=== PATIENT | female | born 1930 | race Caucasian/White ===

== ENCOUNTER 2017-06-02 18:06 | Emergency (ER) | payer MEDICARE, OTHER ==
[2017-06-02] MEDS ORDERED: traMADol 50 MG Tab PO ONE (18:07)
[2017-06-02] MEDS ORDERED: Morphine 4 MG/ML Syringe IM ONE (18:40)
[2017-06-02] MEDS ORDERED: fentaNYL 100 MCG/2 ML SDV IM ONE (18:42)
--- NOTE | 2017-06-02 18:46 | EDM.PDOC ---
ED HPI GENERAL MEDICAL PROBLEM - General Chief Complaint: Lower Extremity Injury/Pain Stated Complaint: "My right leg hurts" Time Seen by Provider: 06/02/17 18:30 Source of Information: Reports: Patient, Family History Limitations: Reports: No Limitations - History of Present Illness INITIAL COMMENTS - FREE TEXT/NARRATIVE: Sofia is an 86 yo female who presents to the ER with complaints of right leg pain, originating in the groin area. She states she traveled to [place] on Sunday for ving and was in a car for quite some time. She states it really didn't bother her at all on Sunday. Around noon on the pain started and has gotten worse since. She states she isn't able to lay flat d/t the discomfort. Admits she isn't able to walk because of the pain. Has noticed some swelling to the lower leg but admits she does get some fluid on her legs. It has been worse on the right then the left. She denies any prior history of right groin pain. She points to the crease of the groin where the pain originates from. States she is on Coumadin and is due for her lab work on Sunday. Has not had it checked in 3 weeks or so. States with recent travel she is concerned of a blood clot. She has otherwise been feeling well. She states her pain is severe and needs something for relief. Onset Date: 05/31/17 Onset Time: 12:00 Duration: Constant Location: Reports: Lower Extremity, Right Improves with: Reports: Immobilization Worsens with: Reports: Other (laying flat), Movement Associated Symptoms: Reports: No Other Symptoms Right Upper Leg Pain Score (Numeric/FACES): 10 - Related Data Allergies Allergy/AdvReac Type Severity Reaction Status Date / Time adhesive tape Allergy Rash Verified 06/02/17 18:25 latex Allergy Rash Verified 06/02/17 18:25 Home Meds: Home Meds Aspirin [Adult Low Dose Aspirin EC] 81 mg PO DAILY 06/02/17 [History] Atenolol 100 mg PO DAILY 06/02/17 [History] Cholecalciferol (Vitamin D3) [Vitamin D3] 2,000 unit PO DAILY 06/02/17 [History] Digoxin 0.25 mg PO ASDIRECTED 06/02/17 [History] Multivitamin [Daily Multiple Vitamin] 1 tab PO DAILY 06/02/17 [History] Potassium Gluconate [Potassium] 99 mg PO BID 06/02/17 [History] Torsemide 20 mg PO ASDIRECTED 06/02/17 [History] Warfarin [Coumadin] 5 mg PO DAILY 06/02/17 [History] Past Medical History HEENT History: Reports: None Cardiovascular History: Reports: Afib, Hypertension Respiratory History: Reports: None Gastrointestinal History: Reports: None Genitourinary History: Reports: Urinary Incontinence Musculoskeletal History: Reports: Osteoarthritis Neurological History: Reports: None Endocrine/Metabolic History: Reports: Obesity/BMI 30+ Hematologic History: Reports: Anticoagulation Therapy - Past Surgical History Head Surgeries/Procedures: Reports: None HEENT Surgical History: Reports: Cataract Surgery, Tonsillectomy Cardiovascular Surgical History: Reports: None Respiratory Surgical History: Reports: None GI Surgical History: Reports: Cholecystectomy Female Surgical History: Reports: Breast Biopsy, Hysterectomy Musculoskeletal Surgical History: Reports: Knee Replacement (left) Social & Family History - Tobacco Use Smoking Status *Q: Former Smoker (quit 35 yrs ago) Tobacco Use Within Last Twelve Months: No - Alcohol Use Alcohol Use History: No - Living Situation & Occupation Living situation: Reports: Alone Occupation: Retired Review of Systems - Review of Systems Review Of Systems: See Below Constitutional: Reports: No Symptoms Eyes: Reports: No Symptoms Ears: Reports: No Symptoms Nose: Reports: No Symptoms Mouth/Throat: Reports: No Symptoms Respiratory: Reports: No Symptoms Cardiovascular: Reports: Edema, Irregular Heart Rate (chronic a. fib) GI/Abdominal: Reports: No Symptoms Genitourinary: Reports: No Symptoms Musculoskeletal: Reports: Leg Pain, Joint Pain, Muscle Stiffness Skin: Reports: No Symptoms Neurological: Reports: No Symptoms Psychiatric: Reports: No Symptoms ED EXAM, GENERAL - Physical Exam Exam: See Below Exam Limited By: No Limitations General Appearance: Alert, Mild Distress Ears: Normal External Exam, Hearing Grossly Normal Nose: Normal Inspection, No Blood Throat/Mouth: Normal Lips, Normal Voice, No Airway Compromise Head: Atraumatic, Normocephalic Respiratory/Chest: No Respiratory Distress, Lungs Clear, Normal Breath Sounds, No Accessory Muscle Use Cardiovascular: Irregularly Irregular (normal rate) GI/Abdominal: Other (obese) Extremities: Pedal Edema (R > L), Leg Pain, Limited Range of Motion (right hip) , Other (No tenderness to lateral hip area ). No: Harper's Sign, Increased Warmth, Redness Neurological: Alert, Oriented, Normal Cognition Psychiatric: Normal Affect, Normal Mood Skin Exam: Warm, Dry, Intact, Normal Color, No Rash Course - Vital Signs Last Recorded V/S: Last Vital Signs Temp 98.2 F 06/02/17 19:02 Pulse 88 06/02/17 19:02 Resp 20 06/02/17 19:02 BP 159/87 H 06/02/17 19:02 Pulse Ox 96 06/02/17 19:02 - Orders/Labs/Meds Orders: Active Orders 24 hr Category Date Time Status Hip Min 2V or 3V w Pelvis Rt [CR] Stat Exams 06/02/17 18:34 Ordered VL Duplex Lwr Ext Veins Ltd Rt [US] Stat Exams 06/02/17 18:34 Ordered Labs: Laboratory Tests 06/02/17 06/02/17 Range/Units 18:58 18:58 WBC 13.4 H (5.0-10.0) 10^3/uL RBC 4.80 (4.00-5.50) 10^6/uL Hgb 14.3 (12.0-16.0) g/dL Hct 43.9 (37.0-47.0) % MCV 91.5 (82.0-94.0) fL MCH 29.8 (27.0-32.0) pg MCHC 32.6 L (33.0-38.0) g/dL RDW Coeff of Joao 13.4 (11.0-15.0) % Plt Count 278 (150-400) 10^3/uL Neut % (Auto) 80.9 (35-85) % Lymph % (Auto) 10.9 (10-55) % Waller % (Auto) 6.5 (0-16) % Eos % (Auto) 1.3 (0-5) % Baso % (Auto) 0.4 (0-3) % Neut # (Auto) 10.82 H (1.80-7.00) 10^3/uL Lymph # (Auto) 1.45 (1.00-4.80) 10^3/uL Waller # (Auto) 0.87 H (0.00-0.80) 10^3/uL Eos # (Auto) 0.17 (0.00-0.45) 10^3/uL Baso # (Auto) 0.05 10^3/uL PT 25.5 H (9.7-12.3) SEC INR 2.30 H (0.92-1.18) Meds: Medications Discontinued Medications Generic Name Dose Route Start Last Admin Trade Name Adamaris PRN Reason Stop Dose Admin Fentanyl 50 mcg 06/02/17 18:42 06/02/17 18:48 Sublimaze IM 06/02/17 18:43 50 mcg ONETIME ONE Administration Morphine Sulfate 4 mg 06/02/17 18:40 06/02/17 18:50 Morphine IM 06/02/17 18:41 Not Given ONETIME ONE Tramadol HCl 2 packet 06/02/17 19:33 Take Home: Tramadol 50 Mg, 4 Tab Pack PO 06/02/17 19:34 ONETIME ONE Departure - Departure Time of Disposition: 19:45 Disposition: Home, Self-Care 01 Clinical Impression: Osteoarthritis of right hip - Discharge Information Instructions: Hip Pain Forms: ED Department Discharge Additional Instructions: 1) Tramadol 50mg - 1 tablet every 6 hours as needed for pain 2) May use Tylenol 1000 mg every 6-8 hours as well for discomfort, recommend no more than 3000mg in a 24 hr period 3) May apply ice 4) Encourage ambulation at tolerated 5) Schedule appointment with Dr. Puckett for Sunday or Sunday to discuss fluoro guided hip injection. 6) Call or return if any concerns or questions... [phone] - Problem List & Annotations (1) Osteoarthritis of right hip SNOMED Code(s): 538233050308383 Code(s): M16.11 - UNILATERAL PRIMARY OSTEOARTHRITIS, RIGHT HIP Status: Acute Qualifiers: Osteoarthritis type: primary Qualified Code(s): M16.11 - Unilateral primary osteoarthritis, right hip - Problem List Review Problem List Initiated/Reviewed/Updated: Yes - My Orders Last 24 Hours: My Active Orders 06/02/17 18:34 Hip Min 2V or 3V w Pelvis Rt [CR] Stat VL Duplex Lwr Ext Veins Ltd Rt [US] Stat - Assessment/Plan Last 24 Hours: My Active Orders 06/02/17 18:34 Hip Min 2V or 3V w Pelvis Rt [CR] Stat VL Duplex Lwr Ext Veins Ltd Rt [US] Stat Plan: Ultrasound was negative for DVT. X-ray's confirmed moderate to severe osteoarthritis of the right hip. Recommend seeing Dr. Puckett on Sunday in clinic for referral to radiology for fluoro guided hip injection. Tramadol 50mg - 1 tablet every 6 hours as needed for pain.
[2017-06-02] MEDS ORDERED: Take Home: traMADol 50 MG, 4 Tab Pack PO ONE (19:33)
[2017-06-02] MEDS ORDERED: Acetaminophen 500 MG Tab PO ONE (19:47)
== END 2017-06-02 20:00 | disposition home or self-care (01) ==
LOC: CC.ED 18:06
DX: M16.11 Unilateral primary osteoarthritis, right hip (principal); I48.91 Unspecified atrial fibrillation; I10 Essential (primary) hypertension; E66.9 Obesity, unspecified; Z91.048 Other nonmedicinal substance allergy status; Z91.040 Latex allergy status; Z79.82 Long term (current) use of aspirin; Z79.899 Other long term (current) drug therapy; Z79.01 Long term (current) use of anticoagulants; Z87.891 Personal history of nicotine dependence
CPT/HCPCS: 36415; 73502; 85025; 85610; 93971; 96372; 99284; A9270; J3010

== ENCOUNTER 2018-07-14 07:45 | Inpatient (IN) | payer MEDICARE, OTHER ==
[2018-07-14] MEDS ORDERED: Albuterol/Ipratropium 3.0-0.5 MG/3 ML Neb Soln NEB ONE ×2 (07:57→08:39)
[2018-07-14 08:22] LABS: CHLORIDE,CL 104 mEq/L (98-106); SODIUM,NA 140 mEq/L (136-145)
--- NOTE | 2018-07-14 08:25 | EDM.PDOC ---
ED HPI GENERAL MEDICAL PROBLEM - General Chief Complaint: Respiratory Problem Stated Complaint: shortness of breath Time Seen by Provider: 07/14/18 08:17 Source of Information: Reports: Patient History Limitations: Reports: No Limitations - History of Present Illness INITIAL COMMENTS - FREE TEXT/NARRATIVE: This patient is an 87 year old female that presents to the ER. The patient reports since yesterday having congestion, drainage, productive cough, shortness of breath. The patent reports she has a histoyr of asthma and bronchitis. The patient reports man of the people she east lunch with have not been coming lately due to being ill. RN called and reported to me the patient was very tight in chest with wheezing and oxygen was 86% on RA. Patient at that time was given a breathing duoneb and oxygen NC. When I listened to the patient she had tight audible wheezes, but moving air. This is much improved the RN reports. At this time, have ordered, labs, ekg, cxr. Onset Date: 07/13/18 Duration: Day(s): (1) Improves with: Reports: None Worsens with: Reports: None Associated Symptoms: Reports: Cough, cough w sputum, Shortness of Breath. Denies: Confusion, Chest Pain, Diaphoresis, Fever/Chills, Headaches, Loss of Appetite, Malaise, Nausea/Vomiting, Rash, Seizure, Syncope, Weakness - Related Data Allergies Allergy/AdvReac Type Severity Reaction Status Date / Time adhesive tape Allergy Rash Verified 07/14/18 08:03 latex Allergy Rash Verified 07/14/18 08:03 Home Meds: Home Meds Atenolol 100 mg PO DAILY 06/02/17 [History] Cholecalciferol (Vitamin D3) [Vitamin D3] 2,000 unit PO DAILY 06/02/17 [History] Potassium Gluconate [Potassium] 198 mg PO QAM 06/02/17 [History] Torsemide 20 mg PO DAILY 06/02/17 [History] Warfarin [Coumadin] 5 mg PO SUMOTUWEFRSA 06/02/17 [History] Albuterol [Ventolin HFA] 2 puff INH QID PRN 07/14/18 [History] Digoxin 0.1875 mg PO SUMOTUWETHSA 07/14/18 [History] Digoxin 250 mg PO FR 07/14/18 [History] Fluticasone/Vilanterol [Breo Ellipta 100-25 MCG Inhalation Kit] 1 puff INH DAILY 07/14/18 [History] Potassium 297 mg PO QPM 07/14/18 [History] Tumeric 1 tab PO DAILY 07/14/18 [History] Warfarin [Coumadin] 7.5 mg PO TH 07/14/18 [History] Past Medical History HEENT History: Reports: None Cardiovascular History: Reports: Afib, Hypertension Respiratory History: Reports: None Gastrointestinal History: Reports: None Genitourinary History: Reports: Urinary Incontinence 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 Musculoskeletal History: Reports: Osteoarthritis Neurological History: Reports: None Endocrine/Metabolic History: Reports: Obesity/BMI 30+ Hematologic History: Reports: Anticoagulation Therapy - Past Surgical History Head Surgeries/Procedures: Reports: None HEENT Surgical History: Reports: Cataract Surgery, Tonsillectomy Cardiovascular Surgical History: Reports: None Respiratory Surgical History: Reports: None GI Surgical History: Reports: Cholecystectomy Female Surgical History: Reports: Breast Biopsy, Hysterectomy Musculoskeletal Surgical History: Reports: Knee Replacement Social & Family History - Tobacco Use Smoking Status *Q: Former Smoker Used Tobacco, but Quit: Yes Month/Year Tobacco Last Used: 40 YEARS AGO - Caffeine Use Caffeine Use: Reports: Coffee - Recreational Drug Use Recreational Drug Use: No - Living Situation & Occupation Living situation: Reports: Alone Occupation: Retired ED ROS GENERAL - Review of Systems Review Of Systems: See Below Constitutional: Reports: No Symptoms HEENT: Reports: Rhinitis, Sinus Problem Respiratory: Reports: Shortness of Breath, Wheezing, Cough, Sputum. Denies: Hemoptysis Cardiovascular: Reports: No Symptoms Endocrine: Reports: No Symptoms GI/Abdominal: Reports: No Symptoms : Reports: No Symptoms Musculoskeletal: Reports: No Symptoms Skin: Reports: No Symptoms Neurological: Reports: No Symptoms Psychiatric: Reports: No Symptoms Hematologic/Lymphatic: Reports: No Symptoms Immunologic: Reports: No Symptoms ED EXAM, GENERAL - Physical Exam Exam: See Below Exam Limited By: No Limitations General Appearance: Alert, WD/WN, No Apparent Distress Eye Exam: Bilateral Eye: Normal Inspection, PERRL Ears: Normal External Exam, Normal Canal, Hearing Grossly Normal, Normal TMs Ear Exam: Bilateral Ear: Auricle Normal, Canal Normal, TM normal Nose: Normal Inspection, Normal Mucosa, No Blood Throat/Mouth: Normal Inspection, Normal Lips, Normal Teeth, Normal Gums, Normal Oropharynx, Normal Voice, No Airway Compromise Head: Atraumatic, Normocephalic Neck: Normal Inspection, Supple, Non-Tender, Full Range of Motion Respiratory/Chest: No Respiratory Distress, No Accessory Muscle Use, Chest Non- Tender, Wheezing Cardiovascular: Normal Peripheral Pulses, Regular Rate, Rhythm, No Edema, No Gallop, No JVD, No Rub, Systolic Murmur Peripheral Pulses: 2+: Radial (L), Radial (R), Posterior Tibial (L), Posterior Tibial (R) Back Exam: Normal Inspection, Full Range of Motion Extremities: Normal Inspection, Normal Range of Motion, Non-Tender, No Pedal Edema, Normal Capillary Refill, Pedal Edema (RLE +1. ) Neurological: Alert, Oriented, Normal Cognition, Normal Gait, No Motor/Sensory Deficits Psychiatric: Normal Affect, Normal Mood Skin Exam: Warm, Dry, Intact, Normal Color, No Rash Lymphatic: No Adenopathy EKG INTERPRETATION EKG Date: 07/14/18 Time: 08:26 Rhythm: A-Fib Rate (Beats/Min): 89 NV/PQ Interval: Digitalis effect. Patient on Digoxin. A-fib with history. Course - Vital Signs Last Recorded V/S: Last Vital Signs Temp 98.7 F 07/14/18 12:00 Pulse 88 07/14/18 14:59 Resp 18 07/14/18 12:00 BP 184/74 H 07/14/18 12:00 Pulse Ox 95 07/14/18 12:00 - Orders/Labs/Meds Orders: Active Orders 24 hr Category Date Time Status RT Aerosol Therapy [RC] 0800,1400,2000 Care 07/14/18 07:57 Active Chest 2V [CR] Stat Exams 07/14/18 07:55 Taken Medication Orders Acetaminophen (Tylenol) 650 mg PO Q4H PRN PRN Reason: Pain (Mild 1-3)/fever Albuterol (Ventolin Hfa) 0 gm INH QID PRN PRN Reason: SHORTNESS OF BREATH Albuterol/Ipratropium (Duoneb 3.0-0.5 Mg/3 Ml) 3 ml NEB Q4H PRN PRN Reason: Shortness Of Breath/wheezing Albuterol/Ipratropium (Duoneb 3.0-0.5 Mg/3 Ml) 3 ml NEB TIDRT LORRI Last Admin: 07/14/18 14:58 Dose: 3 ml Atenolol (Tenormin) 100 mg PO DAILY [facility] Cholecalciferol (Vitamin D3) 2,000 units PO DAILY [facility] Digoxin (Lanoxin) 187.5 mcg PO [email or web address] [facility] Last Admin: 07/14/18 14:59 Dose: 187.5 mcg Digoxin (Lanoxin) 250 mcg PO Fr@1200 [facility] Levofloxacin/Dextrose 500 mg/ (Premix) 100 mls @ 100 mls/hr IV NOW STA Stop: 07/14/18 16:58 Last Admin: 07/14/18 16:14 Dose: Not Given Levofloxacin/Dextrose 250 mg/ (Premix) 50 mls @ 50 mls/hr IV Q24H [facility] Ibuprofen (Motrin) 600 mg PO Q6H PRN PRN Reason: Pain (mild 1-3) Methylprednisolone Sodium Succinate (Solu-Medrol) 62.5 mg IVPUSH Q12H [facility] Mometasone Furoate/Formoterol Fumar (Dulera 100-5 Mcg) 0 puff IH BID [facility] Morphine Sulfate (Morphine) 2 mg IVPUSH Q2H PRN PRN Reason: Pain (severe 7-10) Ondansetron HCl (Zofran) 4 mg IV Q6H PRN PRN Reason: Nausea/Vomiting Potassium (Potassium Gluconate) 4 meq PO QAM [facility] Potassium (Potassium Gluconate) 6 meq PO QPM [facility] Torsemide (Demadex) 20 mg PO DAILY [facility] Warfarin Sodium (Coumadin) 5 mg PO [email or web address] [facility] Last Admin: 07/14/18 14:59 Dose: 5 mg Warfarin Sodium (Coumadin) 7.5 mg PO Th@1200 [facility] Labs: Laboratory Tests 07/14/18 07/14/18 07/14/18 Range/Units 07:55 07:55 07:55 WBC 11.1 H (5.0-10.0) 10^3/uL RBC 5.40 (4.00-5.50) 10^6/uL Hgb 16.0 (12.0-16.0) g/dL Hct 49.0 H (37.0-47.0) % MCV 90.7 (82.0-94.0) fL MCH 29.6 (27.0-32.0) pg MCHC 32.7 L (33.0-38.0) g/dL RDW Coeff of Joao 14.3 (11.0-15.0) % Plt Count 200 (150-400) 10^3/uL Add Manual Diff Yes Neutrophils % (Manual) 85 (35-85) % Band Neutrophils % 5 (0-5) % Lymphocytes % (Manual) 3 L (21-55) % Monocytes % (Manual) 7 (2-12) % PT 19.4 H (9.7-12.3) SEC INR 1.96 H (0.92-1.18) Sodium 140 (136-145) mEq/L Potassium 4.4 (3.5-5.0) mEq/L Chloride 104 (98-106) mEq/L Carbon Dioxide 27 (21-32) mmol/L BUN 14 (7-18) mg/dL Creatinine 0.8 (0.6-1.0) mg/dL Est Cr Clr Drug Dosing 49.09 mL/min Estimated GFR (MDRD) > 60 (>=60) mL/min Glucose 154 H (75-99) mg/dL Calcium 9.1 (8.4-10.1) mg/dL Total Bilirubin 0.8 (0.0-1.0) mg/dL AST 39 H (15-37) U/L ALT 39 (12-78) U/L Alkaline Phosphatase 94 (46-116) U/L Troponin I < 0.017 (0.00-0.06) ng/mL NT-Pro-B Natriuret Pep 1674 H (0-1000) pg/mL Total Protein 7.2 (6.4-8.2) g/dL Albumin 3.7 (3.4-5.0) g/dL Digoxin (0.9-2.0) ng/mL 07/14/18 Range/Units 07:55 WBC (5.0-10.0) 10^3/uL RBC (4.00-5.50) 10^6/uL Hgb (12.0-16.0) g/dL Hct (37.0-47.0) % MCV (82.0-94.0) fL MCH (27.0-32.0) pg MCHC (33.0-38.0) g/dL RDW Coeff of Joao (11.0-15.0) % Plt Count (150-400) 10^3/uL Add Manual Diff Neutrophils % (Manual) (35-85) % Band Neutrophils % (0-5) % Lymphocytes % (Manual) (21-55) % Monocytes % (Manual) (2-12) % PT (9.7-12.3) SEC INR (0.92-1.18) Sodium (136-145) mEq/L Potassium (3.5-5.0) mEq/L Chloride (98-106) mEq/L Carbon Dioxide (21-32) mmol/L BUN (7-18) mg/dL Creatinine (0.6-1.0) mg/dL Est Cr Clr Drug Dosing mL/min Estimated GFR (MDRD) (>=60) mL/min Glucose (75-99) mg/dL Calcium (8.4-10.1) mg/dL Total Bilirubin (0.0-1.0) mg/dL AST (15-37) U/L ALT (12-78) U/L Alkaline Phosphatase (46-116) U/L Troponin I (0.00-0.06) ng/mL NT-Pro-B Natriuret Pep (0-1000) pg/mL Total Protein (6.4-8.2) g/dL Albumin (3.4-5.0) g/dL Digoxin 0.6 L (0.9-2.0) ng/mL Meds: Medications Generic Name Dose Route Start Last Admin Trade Name Freq PRN Reason Stop Dose Admin Acetaminophen 650 mg 07/14/18 09:46 Tylenol PO Q4H PRN Pain (Mild 1-3)/fever Albuterol 0 gm 07/14/18 10:56 Ventolin Hfa INH QID PRN SHORTNESS OF BREATH Albuterol/Ipratropium 3 ml 07/14/18 09:46 Duoneb 3.0-0.5 Mg/3 Ml NEB Q4H PRN Shortness Of Breath/wheezing Albuterol/Ipratropium 3 ml 07/14/18 14:00 07/14/18 14:58 Duoneb 3.0-0.5 Mg/3 Ml NEB 3 ml TIDRT LORRI Administration Atenolol 100 mg 07/15/18 08:00 Tenormin PO DAILY [facility] Cholecalciferol 2,000 units 07/15/18 08:00 Vitamin D3 PO DAILY [facility] Digoxin 187.5 mcg 07/14/18 12:00 07/14/18 14:59 Lanoxin PO 187.5 mcg [id number] [facility] Administration Digoxin 250 mcg 07/19/18 12:00 Lanoxin PO Fr@1200 [facility] Levofloxacin/Dextrose 500 mg/ 100 mls @ 100 mls/hr 07/14/18 16:00 07/14/18 16 :14 Premix IV 07/14/18 16:58 Not Given NOW [facility] Levofloxacin/Dextrose 250 mg/ 50 mls @ 50 mls/hr 07/15/18 16:00 Premix IV Q24H [facility] Ibuprofen 600 mg 07/14/18 09:46 Motrin PO Q6H PRN Pain (mild 1-3) Methylprednisolone Sodium Succinate 62.5 mg 07/14/18 21:00 Solu-Medrol IVPUSH Q12H [facility] Mometasone Furoate/Formoterol Fumar 0 puff 07/15/18 08:00 Dulera 100-5 Mcg IH BID [facility] Morphine Sulfate 2 mg 07/14/18 09:46 Morphine IVPUSH Q2H PRN Pain (severe 7-10) Ondansetron HCl 4 mg 07/14/18 09:46 Zofran IV Q6H PRN Nausea/Vomiting Potassium 4 meq 07/15/18 08:00 Potassium Gluconate PO QAM [facility] Potassium 6 meq 07/14/18 20:00 Potassium Gluconate PO QPM [facility] Torsemide 20 mg 07/15/18 08:00 Demadex PO DAILY [facility] Warfarin Sodium 5 mg 07/14/18 12:15 07/14/18 14:59 Coumadin PO 5 mg [id number] [facility] Administration Warfarin Sodium 7.5 mg 07/18/18 12:00 Coumadin PO Th@1200 [facility] Discontinued Medications Generic Name Dose Route Start Last Admin Trade Name Freq PRN Reason Stop Dose Admin Albuterol/Ipratropium 3 ml 07/14/18 07:57 07/14/18 08:10 Duoneb 3.0-0.5 Mg/3 Ml NEB 07/14/18 07:58 3 ml ONETIME ONE Administration Albuterol/Ipratropium 3 ml 07/14/18 08:39 07/14/18 08:46 Duoneb 3.0-0.5 Mg/3 Ml NEB 07/14/18 08:40 3 ml ONETIME ONE Administration Levofloxacin/Dextrose 500 mg/ 100 mls @ 100 mls/hr 07/14/18 11:00 07/14/18 11 :45 Premix IV 100 mls/hr Q24H [facility] Administration Methylprednisolone Sodium Succinate 125 mg 07/14/18 08:39 07/14/18 08:48 Solu-Medrol IVPUSH 07/14/18 08:40 125 mg NOW STA Administration Non-Formulary Medication 1 tab 07/15/18 08:00 Tumeric PO DAILY [facility] - Radiology Interpretation Free Text/Narrative:: CXR: no pulmonary edema, no pneumothorax. Perhaps RLL small consolidation. - Re-Assessments/Exams Free Text/Narrative Re-Assessment/Exam: 07/14/18 09:13 Patient was taken off oxygen after breathing treatments. She dropped again to 87 % and continued with shortness of breath. She is able to angelia in full and complete sentences, and reports breathing has improved. However, with hypoxia, will admit. Departure - Departure Time of Disposition: 08:56 Disposition: Admitted As Inpatient 67 Condition: Fair Clinical Impression: Hypoxia Acute bronchitis Qualifiers: Bronchitis organism: unspecified organism Qualified Code(s): J20.9 - Acute bronchitis, unspecified Asthma exacerbation Qualifiers: Asthma severity: mild Asthma persistence: intermittent Qualified Code(s): J45.21 - Mild intermittent asthma with (acute) exacerbation Leucocytosis Qualifiers: Leukocytosis type: other Qualified Code(s): D72.828 - Other elevated white blood cell count Pneumonia Qualifiers: Pneumonia type: due to unspecified organism Laterality: right Lung location: lower lobe of lung Qualified Code(s): J18.1 - Lobar pneumonia, unspecified organism - Discharge Information *PRESCRIPTION DRUG MONITORING PROGRAM REVIEWED*: Not Applicable *COPY OF PRESCRIPTION DRUG MONITORING REPORT IN PATIENT JOSETTE: Not Applicable - My Orders Last 24 Hours: My Active Orders 07/14/18 07:55 Chest 2V [CR] Stat 07/14/18 07:57 RT Aerosol Therapy [RC] 0800,1400,1999 - Assessment/Plan Last 24 Hours: My Active Orders 07/14/18 07:55 Chest 2V [CR] Stat 07/14/18 07:57 RT Aerosol Therapy [RC] 0800,1399,1999 Plan: PLEASE SEE RN NOTE FOR PFSH. PLEASE USE ER H&P ADMIT H&P.
[2018-07-14] MEDS ORDERED: methylPREDNISolone Sodium Succinate 125 MG/2 ML SDV IVPUSH STA (08:39)
[2018-07-14] MEDS ORDERED: Morphine 2 MG/ML Syringe IVPUSH PRN (09:46)
[2018-07-14] MEDS ORDERED: Ondansetron 4 MG/2 ML SDV IV PRN (09:46)
[2018-07-14] MEDS ORDERED: cefTRIAXone 1 GM Vial IVPUSH SCH (09:46)
[2018-07-14] MEDS ORDERED: Albuterol 8 GM Inhaler INH PRN (10:56)
[2018-07-14] MEDS ORDERED: Levofloxacin/Dextrose 5%-Water 500 MG in Premix Bag 1 BAG IV SCH (11:00)
[2018-07-14] MEDS: Albuterol/Ipratropium 3.0-0.5 MG/3 ML Neb Soln NEB SCH ×2 (14:58→19:39)
[2018-07-14] MEDS: Digoxin 125 MCG Tab PO SCH (14:59)
[2018-07-14] MEDS: Warfarin 5 MG Tab PO SCH (14:59)
[2018-07-14] MEDS ORDERED: Levofloxacin/Dextrose 5%-Water 500 MG in Premix Bag 1 BAG IV STA (16:00)
[2018-07-14] MEDS: Potassium Gluconate (99 MG) 2 MEQ Tab PO SCH (19:39)
[2018-07-14] MEDS: methylPREDNISolone Sodium Succinate 125 MG/2 ML SDV IVPUSH SCH (20:34)
[2018-07-15] MEDS: Albuterol/Ipratropium 3.0-0.5 MG/3 ML Neb Soln NEB PRN (02:45)
[2018-07-15] MEDS ORDERED: Formoterol/Mometasone 100-5 MCG 8.8 GM Inhaler IH SCH (08:00)
[2018-07-15] MEDS ORDERED: TUMERIC PO SCH (08:00)
[2018-07-15] MEDS: methylPREDNISolone Sodium Succinate 125 MG/2 ML SDV IVPUSH SCH ×2 (08:26→20:16)
[2018-07-15] MEDS: Potassium Gluconate (99 MG) 2 MEQ Tab PO SCH ×2 (08:26→20:09)
[2018-07-15] MEDS: Albuterol/Ipratropium 3.0-0.5 MG/3 ML Neb Soln NEB SCH ×3 (08:26→20:11)
[2018-07-15] MEDS: Torsemide 20 MG Tab PO SCH (08:27)
[2018-07-15] MEDS: Cholecalciferol (Vitamin D3) 1,000 Unit Tab PO SCH (08:27)
[2018-07-15] MEDS: Atenolol 50 MG Tab PO SCH (08:27)
[2018-07-15] MEDS: [UNRECOGNIZED DRUG - OTHER] INH SCH (08:45)
[2018-07-15] MEDS: VILANTEROL INH SCH (08:45)
[2018-07-15 09:32] LABS: CHLORIDE,CL 109 mEq/L (98-106); SODIUM,NA 144 mEq/L (136-145)
[2018-07-15] MEDS: Warfarin 5 MG Tab PO SCH (12:33)
[2018-07-15] MEDS: Digoxin 125 MCG Tab PO SCH (12:34)
[2018-07-15] MEDS: Levofloxacin/Dextrose 5%-Water 250 MG in Premix Bag 1 BAG IV SCH (16:34)
[2018-07-15] MEDS: amLODIPine 10 MG Tab PO SCH (20:09)
[2018-07-15] MEDS: Acetaminophen 325 MG Tab PO PRN (20:14)
--- NOTE | 2018-07-15 21:23 | PCM.PN ---
- General Info Date of Service: 07/16/18 Admission Dx/Problem (Free Text): Acute Bronchitis Functional Status: Reports: Pain Controlled, Tolerating Diet, Ambulating - Review of Systems General: Reports: Fatigue, Malaise. Denies: Fever, Weakness HEENT: Reports: No Symptoms Pulmonary: Reports: Shortness of Breath, Cough, Sputum Cardiovascular: Denies: Chest Pain, Edema, Lightheadedness Gastrointestinal: Denies: Abdominal Pain, Nausea, Vomiting Genitourinary: Reports: No Symptoms Musculoskeletal: Reports: No Symptoms Skin: Reports: No Symptoms Neurological: Reports: No Symptoms - Patient Data Vitals - Most Recent: Last Vital Signs Temp 97.4 F 07/15/18 20:00 Pulse 85 07/15/18 20:00 Resp 20 07/15/18 20:00 BP 166/55 H 07/15/18 20:09 Pulse Ox 97 07/15/18 20:00 Weight - Most Recent: 223 lb 8 oz Lab Results Last 24 Hours: Laboratory Results - last 24 hr 07/15/18 07/15/18 07/15/18 Range/Units 07:05 07:05 07:05 WBC 15.3 H (5.0-10.0) 10^3/uL RBC 5.17 (4.00-5.50) 10^6/uL Hgb 15.2 (12.0-16.0) g/dL Hct 47.4 H (37.0-47.0) % MCV 91.7 (82.0-94.0) fL MCH 29.4 (27.0-32.0) pg MCHC 32.1 L (33.0-38.0) g/dL RDW Coeff of Joao 14.4 (11.0-15.0) % Plt Count 230 (150-400) 10^3/uL Neut % (Auto) 91.8 H (35-85) % Lymph % (Auto) 4.0 L (10-55) % [place] % (Auto) 4.1 (0-16) % Eos % (Auto) 0 (0-5) % Baso % (Auto) 0.1 (0-3) % Neut # (Auto) 14.05 H (1.80-7.00) 10^3/uL Lymph # (Auto) 0.61 L (1.00-4.80) 10^3/uL [place] # (Auto) 0.63 (0.00-0.80) 10^3/uL Eos # (Auto) 0.00 (0.00-0.45) 10^3/uL Baso # (Auto) 0.01 10^3/uL PT 23.8 H (9.7-12.3) SEC INR 2.45 H (0.92-1.18) Sodium 144 (136-145) mEq/L Potassium 4.8 (3.5-5.0) mEq/L Chloride 109 H (98-106) mEq/L Carbon Dioxide 28 (21-32) mmol/L BUN 16 (7-18) mg/dL Creatinine 0.8 (0.6-1.0) mg/dL Est Cr Clr Drug Dosing 49.09 mL/min Estimated GFR (MDRD) > 60 (>=60) mL/min Glucose 165 H (75-99) mg/dL Calcium 9.5 (8.4-10.1) mg/dL C-Reactive Protein 3.8 H (0.2-0.8) mg/dL NT-Pro-B Natriuret Pep 4312 H (0-1000) pg/mL Larry Results Last 24 Hours: Microbiology 07/14/18 09:55 Aerobic Blood Culture - Preliminary Blood - Venous - Lab Draw NO GROWTH AFTER 1 DAY Anaerobic Blood Culture - Preliminary NO GROWTH AFTER 1 DAY 07/14/18 09:50 Aerobic Blood Culture - Preliminary Blood - Venous NO GROWTH AFTER 1 DAY Anaerobic Blood Culture - Preliminary NO GROWTH AFTER 1 DAY Med Orders - Current: Current Medications Acetaminophen (Tylenol) 650 mg PO Q4H PRN PRN Reason: Pain (Mild 1-3)/fever Last Admin: 07/15/18 20:14 Dose: 650 mg Albuterol (Ventolin Hfa) 0 gm INH QID PRN PRN Reason: SHORTNESS OF BREATH Albuterol/Ipratropium (Duoneb 3.0-0.5 Mg/3 Ml) 3 ml NEB Q4H PRN PRN Reason: Shortness Of Breath/wheezing Last Admin: 07/15/18 02:45 Dose: 3 ml Albuterol/Ipratropium (Duoneb 3.0-0.5 Mg/3 Ml) 3 ml NEB TIDRT [facility] Last Admin: 07/15/18 20:11 Dose: 3 ml Amlodipine Besylate (Norvasc) 5 mg PO BEDTIME [facility] Last Admin: 07/15/18 20:09 Dose: 5 mg Atenolol (Tenormin) 100 mg PO DAILY [facility] Last Admin: 07/15/18 08:27 Dose: 100 mg Cholecalciferol (Vitamin D3) 2,000 units PO DAILY [facility] Last Admin: 07/15/18 08:27 Dose: 2,000 units Digoxin (Lanoxin) 187.5 mcg PO SuMoTuWeThSa@1200 [facility] Last Admin: 07/15/18 12:34 Dose: 187.5 mcg Digoxin (Lanoxin) 250 mcg PO Fr@1200 [facility] Levofloxacin/Dextrose 250 mg/ (Premix) 50 mls @ 50 mls/hr IV Q24H [facility] Last Admin: 07/15/18 16:34 Dose: 50 mls/hr Ibuprofen (Motrin) 600 mg PO Q6H PRN PRN Reason: Pain (mild 1-3) Methylprednisolone Sodium Succinate (Solu-Medrol) 62.5 mg IVPUSH Q12H [facility] Last Admin: 07/15/18 20:16 Dose: 62.5 mg Morphine Sulfate (Morphine) 2 mg IVPUSH Q2H PRN PRN Reason: Pain (severe 7-10) Ptom Breo Ellipta Fluticasone/Vilanterol 100/25 1 Puff) 1 puff INH DAILY [facility] Last Admin: 07/15/18 08:45 Dose: 1 puff Ondansetron HCl (Zofran) 4 mg IV Q6H PRN PRN Reason: Nausea/Vomiting Potassium (Potassium Gluconate) 4 meq PO QAM [facility] Last Admin: 07/15/18 08:26 Dose: 4 meq Potassium (Potassium Gluconate) 6 meq PO QPM [facility] Last Admin: 07/15/18 20:09 Dose: 6 meq Torsemide (Demadex) 20 mg PO DAILY [facility] Last Admin: 07/15/18 08:27 Dose: 20 mg Warfarin Sodium (Coumadin) 5 mg PO SuMoTuWeFrSa@1200 [facility] Last Admin: 07/15/18 12:33 Dose: 5 mg Warfarin Sodium (Coumadin) 7.5 mg PO Th@1200 [facility] Discontinued Medications Albuterol/Ipratropium (Duoneb 3.0-0.5 Mg/3 Ml) 3 ml NEB ONETIME ONE Stop: 07/14/18 07:58 Last Admin: 07/14/18 08:10 Dose: 3 ml Albuterol/Ipratropium (Duoneb 3.0-0.5 Mg/3 Ml) 3 ml NEB ONETIME ONE Stop: 07/14/18 08:40 Last Admin: 07/14/18 08:46 Dose: 3 ml Levofloxacin/Dextrose 500 mg/ (Premix) 100 mls @ 100 mls/hr IV Q24H [facility] Last Admin: 07/14/18 11:45 Dose: 100 mls/hr Levofloxacin/Dextrose 500 mg/ (Premix) 100 mls @ 100 mls/hr IV NOW STA Stop: 07/14/18 16:58 Last Admin: 07/14/18 16:14 Dose: Not Given Methylprednisolone Sodium Succinate (Solu-Medrol) 125 mg IVPUSH NOW STA Stop: 07/14/18 08:40 Last Admin: 07/14/18 08:48 Dose: 125 mg Mometasone Furoate/Formoterol Fumar (Dulera 100-5 Mcg) 0 puff IH BID [facility] Last Admin: 07/15/18 08:45 Dose: Not Given Non-Formulary Medication (Tumeric) 1 tab PO DAILY [facility] - Exam Quality Assessment: Supplemental Oxygen General: Alert, Oriented HEENT: Mucous Membr. Moist/[place] Neck: Supple Lungs: Normal Respiratory Effort, Decreased Breath Sounds, Crackles (bases bilaterally) Cardiovascular: Regular Rate, Regular Rhythm GI/Abdominal Exam: Normal Bowel Sounds, Soft, Non-Tender Extremities: Normal Inspection, No Pedal Edema Skin: Warm, Dry Neurological: No New Focal Deficit - Problem List & Annotations (1) Acute bronchitis SNOMED Code(s): 60673520 Code(s): J20.9 - ACUTE BRONCHITIS, UNSPECIFIED Status: Acute Priority: High Current Visit: Yes Qualifiers: Bronchitis organism: unspecified organism Qualified Code(s): J20.9 - Acute bronchitis, unspecified (2) Pneumonia SNOMED Code(s): 195757934 Code(s): J18.9 - PNEUMONIA, UNSPECIFIED ORGANISM Status: Acute Priority: High Current Visit: Yes Qualifiers: Pneumonia type: due to unspecified organism Laterality: right Lung location: lower lobe of lung Qualified Code(s): J18.1 - Lobar pneumonia, unspecified organism - Problem List Review Problem List Initiated/Reviewed/Updated: Yes - My Orders Last 24 Hours: My Active Orders 07/15/18 20:00 amLODIPine [Norvasc] 5 mg PO BEDTIME - Assessment Assessment:: RLL Pneumonia - Plan Plan:: Patient admits to feeling better today. Does still get short of breath but doesn't feel as tight as was when presented yesterday. Oxygen sats 97-98% on 2 liters. Lung sounds note crackles in the bases, no wheezing at this time. Diminished air exchange. Afebrile. Is ambulating short distances. WBC 15.3 this am. CRP 3.8. ProBNP increased. Blood pressure 180s/70s. Will continue with IV Levaquin and Solu Medrol. Wean off oxygen as able. Start Norvasc 5 mg daily at bedtime. Repeat labs in am. Reevaluate discharge potential at that time.
[2018-07-16] MEDS: Albuterol/Ipratropium 3.0-0.5 MG/3 ML Neb Soln NEB SCH ×3 (07:30→19:49)
[2018-07-16] MEDS: [UNRECOGNIZED DRUG - OTHER] INH SCH (07:30)
[2018-07-16] MEDS: VILANTEROL INH SCH (07:30)
[2018-07-16] MEDS: Potassium Gluconate (99 MG) 2 MEQ Tab PO SCH ×2 (07:31→19:50)
[2018-07-16] MEDS: Cholecalciferol (Vitamin D3) 1,000 Unit Tab PO SCH (07:31)
[2018-07-16] MEDS: Atenolol 50 MG Tab PO SCH (07:32)
[2018-07-16] MEDS: Torsemide 20 MG Tab PO SCH (07:33)
[2018-07-16] MEDS: methylPREDNISolone Sodium Succinate 125 MG/2 ML SDV IVPUSH SCH ×2 (09:05→20:07)
--- NOTE | 2018-07-16 09:15 | PCM.PN ---
- General Info Date of Service: 07/16/18 Admission Dx/Problem (Free Text): Acute Bronchitis Functional Status: Reports: Pain Controlled, Tolerating Diet. Denies: Ambulating - Review of Systems General: Reports: Weakness, Fatigue. Denies: Fever HEENT: Reports: No Symptoms Pulmonary: Reports: Shortness of Breath, Cough. Denies: Sputum Cardiovascular: Reports: Edema. Denies: Chest Pain, Lightheadedness Gastrointestinal: Denies: Abdominal Pain, Nausea, Vomiting Genitourinary: Reports: No Symptoms Musculoskeletal: Reports: No Symptoms Skin: Reports: No Symptoms Neurological: Reports: No Symptoms - Patient Data Vitals - Most Recent: Last Vital Signs Temp 97.3 F 07/16/18 07:33 Pulse 81 07/16/18 07:33 Resp 20 07/16/18 07:33 BP 148/67 H 07/16/18 07:33 Pulse Ox 97 07/16/18 07:33 Weight - Most Recent: 232 lb Lab Results Last 24 Hours: Laboratory Results - last 24 hr 07/15/18 07/16/18 07/16/18 Range/Units 07:05 07:23 07:23 WBC 19.3 H (5.0-10.0) 10^3/uL RBC 5.22 (4.00-5.50) 10^6/uL Hgb 15.4 (12.0-16.0) g/dL Hct 47.7 H (37.0-47.0) % MCV 91.4 (82.0-94.0) fL MCH 29.5 (27.0-32.0) pg MCHC 32.3 L (33.0-38.0) g/dL RDW Coeff of Joao 14.4 (11.0-15.0) % Plt Count 259 (150-400) 10^3/uL Neut % (Auto) 92.0 H (35-85) % Lymph % (Auto) 4.7 L (10-55) % [place] % (Auto) 3.2 (0-16) % Eos % (Auto) 0 (0-5) % Baso % (Auto) 0.1 (0-3) % Neut # (Auto) 17.81 H (1.80-7.00) 10^3/uL Lymph # (Auto) 0.91 L (1.00-4.80) 10^3/uL [place] # (Auto) 0.61 (0.00-0.80) 10^3/uL Eos # (Auto) 0.00 (0.00-0.45) 10^3/uL Baso # (Auto) 0.01 10^3/uL PT (9.7-12.3) SEC INR (0.92-1.18) Sodium 144 141 (136-145) mEq/L Potassium 4.8 4.7 (3.5-5.0) mEq/L Chloride 109 H 107 H (98-106) mEq/L Carbon Dioxide 28 26 (21-32) mmol/L BUN 16 22 H (7-18) mg/dL Creatinine 0.8 0.9 (0.6-1.0) mg/dL Est Cr Clr Drug Dosing 49.09 43.63 mL/min Estimated GFR (MDRD) > 60 59 L (>=60) mL/min Glucose 165 H 137 H (75-99) mg/dL Calcium 9.5 9.4 (8.4-10.1) mg/dL C-Reactive Protein 3.8 H 1.4 H (0.2-0.8) mg/dL NT-Pro-B Natriuret Pep 4312 H 2290 H (0-1000) pg/mL 07/16/18 Range/Units 07:23 WBC (5.0-10.0) 10^3/uL RBC (4.00-5.50) 10^6/uL Hgb (12.0-16.0) g/dL Hct (37.0-47.0) % MCV (82.0-94.0) fL MCH (27.0-32.0) pg MCHC (33.0-38.0) g/dL RDW Coeff of Joao (11.0-15.0) % Plt Count (150-400) 10^3/uL Neut % (Auto) (35-85) % Lymph % (Auto) (10-55) % [place] % (Auto) (0-16) % Eos % (Auto) (0-5) % Baso % (Auto) (0-3) % Neut # (Auto) (1.80-7.00) 10^3/uL Lymph # (Auto) (1.00-4.80) 10^3/uL [place] # (Auto) (0.00-0.80) 10^3/uL Eos # (Auto) (0.00-0.45) 10^3/uL Baso # (Auto) 10^3/uL PT 30.7 H (9.7-12.3) SEC INR 3.22 H (0.92-1.18) Sodium (136-145) mEq/L Potassium (3.5-5.0) mEq/L Chloride (98-106) mEq/L Carbon Dioxide (21-32) mmol/L BUN (7-18) mg/dL Creatinine (0.6-1.0) mg/dL Est Cr Clr Drug Dosing mL/min Estimated GFR (MDRD) (>=60) mL/min Glucose (75-99) mg/dL Calcium (8.4-10.1) mg/dL C-Reactive Protein (0.2-0.8) mg/dL NT-Pro-B Natriuret Pep (0-1000) pg/mL Larry Results Last 24 Hours: Microbiology 07/14/18 09:55 Aerobic Blood Culture - Preliminary Blood - Venous - Lab Draw NO GROWTH AFTER 1 DAY Anaerobic Blood Culture - Preliminary NO GROWTH AFTER 1 DAY 07/14/18 09:50 Aerobic Blood Culture - Preliminary Blood - Venous NO GROWTH AFTER 1 DAY Anaerobic Blood Culture - Preliminary NO GROWTH AFTER 1 DAY Med Orders - Current: Current Medications Acetaminophen (Tylenol) 650 mg PO Q4H PRN PRN Reason: Pain (Mild 1-3)/fever Last Admin: 07/15/18 20:14 Dose: 650 mg Albuterol (Ventolin Hfa) 0 gm INH QID PRN PRN Reason: SHORTNESS OF BREATH Albuterol/Ipratropium (Duoneb 3.0-0.5 Mg/3 Ml) 3 ml NEB Q4H PRN PRN Reason: Shortness Of Breath/wheezing Last Admin: 07/15/18 02:45 Dose: 3 ml Albuterol/Ipratropium (Duoneb 3.0-0.5 Mg/3 Ml) 3 ml NEB TIDRT [facility] Last Admin: 07/16/18 07:30 Dose: 3 ml Amlodipine Besylate (Norvasc) 5 mg PO BEDTIME [facility] Last Admin: 07/15/18 20:09 Dose: 5 mg Atenolol (Tenormin) 100 mg PO DAILY [facility] Last Admin: 07/16/18 07:32 Dose: 100 mg Cholecalciferol (Vitamin D3) 2,000 units PO DAILY [facility] Last Admin: 07/16/18 07:31 Dose: 2,000 units Digoxin (Lanoxin) 187.5 mcg PO SuMoTuWeThSa@1200 [facility] Last Admin: 07/15/18 12:34 Dose: 187.5 mcg Digoxin (Lanoxin) 250 mcg PO Fr@1200 [facility] Levofloxacin/Dextrose 250 mg/ (Premix) 50 mls @ 50 mls/hr IV Q24H [facility] Last Admin: 07/15/18 16:34 Dose: 50 mls/hr Ibuprofen (Motrin) 600 mg PO Q6H PRN PRN Reason: Pain (mild 1-3) Methylprednisolone Sodium Succinate (Solu-Medrol) 62.5 mg IVPUSH Q12H [facility] Last Admin: 07/15/18 20:16 Dose: 62.5 mg Morphine Sulfate (Morphine) 2 mg IVPUSH Q2H PRN PRN Reason: Pain (severe 7-10) Ptom Breo Ellipta Fluticasone/Vilanterol 100/25 1 Puff) 1 puff INH DAILY [facility] Last Admin: 07/16/18 07:30 Dose: 1 puff Ondansetron HCl (Zofran) 4 mg IV Q6H PRN PRN Reason: Nausea/Vomiting Potassium (Potassium Gluconate) 4 meq PO QAM [facility] Last Admin: 07/16/18 07:31 Dose: 4 meq Potassium (Potassium Gluconate) 6 meq PO QPM [facility] Last Admin: 07/15/18 20:09 Dose: 6 meq Torsemide (Demadex) 20 mg PO DAILY [facility] Last Admin: 07/16/18 07:33 Dose: 20 mg Warfarin Sodium (Coumadin) 5 mg PO SuMoTuWeFrSa@1200 [facility] Last Admin: 07/15/18 12:33 Dose: 5 mg Warfarin Sodium (Coumadin) 7.5 mg PO Th@1200 [facility] Discontinued Medications Albuterol/Ipratropium (Duoneb 3.0-0.5 Mg/3 Ml) 3 ml NEB ONETIME ONE Stop: 07/14/18 07:58 Last Admin: 07/14/18 08:10 Dose: 3 ml Albuterol/Ipratropium (Duoneb 3.0-0.5 Mg/3 Ml) 3 ml NEB ONETIME ONE Stop: 07/14/18 08:40 Last Admin: 07/14/18 08:46 Dose: 3 ml Levofloxacin/Dextrose 500 mg/ (Premix) 100 mls @ 100 mls/hr IV Q24H [facility] Last Admin: 07/14/18 11:45 Dose: 100 mls/hr Levofloxacin/Dextrose 500 mg/ (Premix) 100 mls @ 100 mls/hr IV NOW STA Stop: 07/14/18 16:58 Last Admin: 07/14/18 16:14 Dose: Not Given Methylprednisolone Sodium Succinate (Solu-Medrol) 125 mg IVPUSH NOW STA Stop: 07/14/18 08:40 Last Admin: 07/14/18 08:48 Dose: 125 mg Mometasone Furoate/Formoterol Fumar (Dulera 100-5 Mcg) 0 puff IH BID [facility] Last Admin: 07/15/18 08:45 Dose: Not Given Non-Formulary Medication (Tumeric) 1 tab PO DAILY [facility] - Exam Quality Assessment: Supplemental Oxygen General: Alert, Oriented HEENT: Mucous Membr. Moist/[place] Neck: Supple Lungs: Decreased Breath Sounds, Wheezing Cardiovascular: Regular Rate, Regular Rhythm GI/Abdominal Exam: Normal Bowel Sounds, Soft, Non-Tender Extremities: Normal Inspection, Pedal Edema (trace) Skin: Warm, Dry Neurological: No New Focal Deficit - Problem List & Annotations (1) Acute bronchitis SNOMED Code(s): 65777551 Code(s): J20.9 - ACUTE BRONCHITIS, UNSPECIFIED Status: Acute Priority: High Current Visit: Yes Qualifiers: Bronchitis organism: unspecified organism Qualified Code(s): J20.9 - Acute bronchitis, unspecified (2) Pneumonia SNOMED Code(s): 520900074 Code(s): J18.9 - PNEUMONIA, UNSPECIFIED ORGANISM Status: Acute Priority: High Current Visit: Yes Qualifiers: Pneumonia type: due to unspecified organism Laterality: right Lung location: lower lobe of lung Qualified Code(s): J18.1 - Lobar pneumonia, unspecified organism - Problem List Review Problem List Initiated/Reviewed/Updated: Yes - My Orders Last 24 Hours: My Active Orders 07/15/18 20:00 amLODIPine [Norvasc] 5 mg PO BEDTIME - Assessment Assessment:: RLL Pneumonia - Plan Plan:: Patient admits to feeling better today. Does still get short of breath but doesn't feel as tight as was when presented yesterday. Oxygen sats 97-98% on 2 liters. Lung sounds note crackles in the bases, no wheezing at this time. Diminished air exchange. Afebrile. Is ambulating short distances. WBC 15.3 this am. CRP 3.8. ProBNP increased. Blood pressure 180s/70s. Will continue with IV Levaquin and Solu Medrol. Wean off oxygen as able. Start Norvasc 5 mg daily at bedtime. Repeat labs in am. Reevaluate discharge potential at that time. 07-16-2018 Patient stable today. Still continues to feel short of breath when up. States cough/chest is loosening. No sputum production as of yet. Afebrile. Blood pressure is improved today. WBC is high today, likely from steroids. CRP is improved, 1.4. INR is high today, 3.22. Initial blood cultures show no growth. Will ambulate patient today. Continue same medication regimen. Hold Coumadin today. Possible discharge tomorrow if able to wean off oxygen.
[2018-07-16] MEDS: Docusate Sodium 100 MG Cap PO SCH (10:00)
[2018-07-16] MEDS: Ibuprofen 200 MG Tab PO PRN (10:00)
[2018-07-16] MEDS: Warfarin 5 MG Tab PO SCH (11:18)
[2018-07-16] MEDS: Digoxin 125 MCG Tab PO SCH (11:59)
[2018-07-16] MEDS: Levofloxacin/Dextrose 5%-Water 250 MG in Premix Bag 1 BAG IV SCH (15:54)
[2018-07-16] MEDS: Acetaminophen 325 MG Tab PO PRN (16:00)
[2018-07-16] MEDS: amLODIPine 10 MG Tab PO SCH (19:49)
[2018-07-17] MEDS: Ibuprofen 200 MG Tab PO PRN ×3 (04:29→23:08)
[2018-07-17] MEDS: Cholecalciferol (Vitamin D3) 1,000 Unit Tab PO SCH (07:46)
[2018-07-17] MEDS: Docusate Sodium 100 MG Cap PO SCH (07:46)
[2018-07-17] MEDS: Potassium Gluconate (99 MG) 2 MEQ Tab PO SCH ×2 (07:46→19:34)
[2018-07-17] MEDS: Atenolol 50 MG Tab PO SCH (07:49)
[2018-07-17] MEDS: [UNRECOGNIZED DRUG - OTHER] INH SCH (07:50)
[2018-07-17] MEDS: Torsemide 20 MG Tab PO SCH (07:50)
[2018-07-17] MEDS: Albuterol/Ipratropium 3.0-0.5 MG/3 ML Neb Soln NEB SCH ×3 (07:50→19:36)
[2018-07-17] MEDS: VILANTEROL INH SCH (07:50)
[2018-07-17] MEDS: methylPREDNISolone Sodium Succinate 125 MG/2 ML SDV IVPUSH SCH ×2 (08:16→20:06)
--- NOTE | 2018-07-17 09:15 | PCM.PN ---
- General Info Date of Service: 07/17/18 Admission Dx/Problem (Free Text): Acute Bronchitis Functional Status: Reports: Pain Controlled, Tolerating Diet, Ambulating - Review of Systems General: Reports: Fatigue, Malaise. Denies: Fever, Weakness HEENT: Reports: Rhinitis Pulmonary: Reports: Shortness of Breath, Cough, Sputum, Wheezing Cardiovascular: Reports: Edema. Denies: Chest Pain, Lightheadedness Gastrointestinal: Denies: Abdominal Pain, Nausea, Vomiting Genitourinary: Reports: No Symptoms Musculoskeletal: Reports: No Symptoms Skin: Reports: No Symptoms - Patient Data Vitals - Most Recent: Last Vital Signs Temp 97.6 F 07/17/18 07:45 Pulse 80 07/17/18 07:49 Resp 18 07/17/18 07:45 BP 161/69 H 07/17/18 07:49 Pulse Ox 96 07/17/18 07:45 Weight - Most Recent: 226 lb Lab Results Last 24 Hours: Laboratory Results - last 24 hr 07/17/18 07/17/18 07/17/18 Range/Units 07:00 07:00 07:20 WBC 16.7 H (5.0-10.0) 10^3/uL RBC 5.39 (4.00-5.50) 10^6/uL Hgb 16.0 (12.0-16.0) g/dL Hct 48.8 H (37.0-47.0) % MCV 90.5 (82.0-94.0) fL MCH 29.7 (27.0-32.0) pg MCHC 32.8 L (33.0-38.0) g/dL RDW Coeff of Joao 14.4 (11.0-15.0) % Plt Count 278 (150-400) 10^3/uL Neut % (Auto) 90.4 H (35-85) % Lymph % (Auto) 5.5 L (10-55) % [place] % (Auto) 4.0 (0-16) % Eos % (Auto) 0 (0-5) % Baso % (Auto) 0.1 (0-3) % Neut # (Auto) 15.10 H (1.80-7.00) 10^3/uL Lymph # (Auto) 0.92 L (1.00-4.80) 10^3/uL [place] # (Auto) 0.67 (0.00-0.80) 10^3/uL Eos # (Auto) 0.00 (0.00-0.45) 10^3/uL Baso # (Auto) 0.01 10^3/uL PT 27.9 H (9.7-12.3) SEC INR 2.90 H (0.92-1.18) Sodium 142 (136-145) mEq/L Potassium 4.6 (3.5-5.0) mEq/L Chloride 105 (98-106) mEq/L Carbon Dioxide 29 (21-32) mmol/L BUN 23 H (7-18) mg/dL Creatinine 0.9 (0.6-1.0) mg/dL Est Cr Clr Drug Dosing 43.63 mL/min Estimated GFR (MDRD) 59 L (>=60) mL/min Glucose 136 H (75-99) mg/dL Calcium 9.4 (8.4-10.1) mg/dL C-Reactive Protein 0.6 (0.2-0.8) mg/dL NT-Pro-B Natriuret Pep 2573 H (0-1000) pg/mL Larry Results Last 24 Hours: Microbiology 07/14/18 09:55 Aerobic Blood Culture - Preliminary Blood - Venous - Lab Draw NO GROWTH AFTER 2 DAYS Anaerobic Blood Culture - Preliminary NO GROWTH AFTER 2 DAYS 07/14/18 09:50 Aerobic Blood Culture - Preliminary Blood - Venous NO GROWTH AFTER 2 DAYS Anaerobic Blood Culture - Preliminary NO GROWTH AFTER 2 DAYS Med Orders - Current: Current Medications Acetaminophen (Tylenol) 650 mg PO Q4H PRN PRN Reason: Pain (Mild 1-3)/fever Last Admin: 07/16/18 16:00 Dose: 650 mg Albuterol (Ventolin Hfa) 0 gm INH QID PRN PRN Reason: SHORTNESS OF BREATH Albuterol/Ipratropium (Duoneb 3.0-0.5 Mg/3 Ml) 3 ml NEB Q4H PRN PRN Reason: Shortness Of Breath/wheezing Last Admin: 07/15/18 02:45 Dose: 3 ml Albuterol/Ipratropium (Duoneb 3.0-0.5 Mg/3 Ml) 3 ml NEB TIDRT [facility] Last Admin: 07/17/18 07:50 Dose: 3 ml Amlodipine Besylate (Norvasc) 5 mg PO BEDTIME [facility] Last Admin: 07/16/18 19:49 Dose: 5 mg Atenolol (Tenormin) 100 mg PO DAILY [facility] Last Admin: 07/17/18 07:49 Dose: 100 mg Cholecalciferol (Vitamin D3) 2,000 units PO DAILY [facility] Last Admin: 07/17/18 07:46 Dose: 2,000 units Digoxin (Lanoxin) 187.5 mcg PO SuMoTuWeThSa@1200 [facility] Last Admin: 07/16/18 11:59 Dose: 187.5 mcg Digoxin (Lanoxin) 250 mcg PO Fr@1200 [facility] Docusate Sodium (Colace) 100 mg PO DAILY [facility] Last Admin: 07/17/18 07:46 Dose: 100 mg Levofloxacin/Dextrose 250 mg/ (Premix) 50 mls @ 50 mls/hr IV Q24H [facility] Last Admin: 07/16/18 15:54 Dose: 50 mls/hr Ibuprofen (Motrin) 600 mg PO Q6H PRN PRN Reason: Pain (mild 1-3) Last Admin: 07/17/18 04:29 Dose: 600 mg Methylprednisolone Sodium Succinate (Solu-Medrol) 62.5 mg IVPUSH Q12H [facility] Last Admin: 07/17/18 08:16 Dose: 62.5 mg Morphine Sulfate (Morphine) 2 mg IVPUSH Q2H PRN PRN Reason: Pain (severe 7-10) Ptom Breo Ellipta Fluticasone/Vilanterol 100/25 1 Puff) 1 puff INH DAILY [facility] Last Admin: 07/17/18 07:50 Dose: 1 puff Ondansetron HCl (Zofran) 4 mg IV Q6H PRN PRN Reason: Nausea/Vomiting Potassium (Potassium Gluconate) 4 meq PO QAM [facility] Last Admin: 07/17/18 07:46 Dose: 4 meq Potassium (Potassium Gluconate) 6 meq PO QPM [facility] Last Admin: 07/16/18 19:50 Dose: 6 meq Torsemide (Demadex) 20 mg PO DAILY [facility] Last Admin: 07/17/18 07:50 Dose: 20 mg Warfarin Sodium (Coumadin) 5 mg PO SuMoTuWeFrSa@1200 [facility] Last Admin: 07/16/18 11:18 Dose: Not Given Warfarin Sodium (Coumadin) 7.5 mg PO Th@1200 [facility] Discontinued Medications Albuterol/Ipratropium (Duoneb 3.0-0.5 Mg/3 Ml) 3 ml NEB ONETIME ONE Stop: 07/14/18 07:58 Last Admin: 07/14/18 08:10 Dose: 3 ml Albuterol/Ipratropium (Duoneb 3.0-0.5 Mg/3 Ml) 3 ml NEB ONETIME ONE Stop: 07/14/18 08:40 Last Admin: 07/14/18 08:46 Dose: 3 ml Levofloxacin/Dextrose 500 mg/ (Premix) 100 mls @ 100 mls/hr IV Q24H [facility] Last Admin: 07/14/18 11:45 Dose: 100 mls/hr Levofloxacin/Dextrose 500 mg/ (Premix) 100 mls @ 100 mls/hr IV NOW STA Stop: 07/14/18 16:58 Last Admin: 07/14/18 16:14 Dose: Not Given Methylprednisolone Sodium Succinate (Solu-Medrol) 125 mg IVPUSH NOW STA Stop: 07/14/18 08:40 Last Admin: 07/14/18 08:48 Dose: 125 mg Mometasone Furoate/Formoterol Fumar (Dulera 100-5 Mcg) 0 puff IH BID [facility] Last Admin: 07/15/18 08:45 Dose: Not Given Non-Formulary Medication (Tumeric) 1 tab PO DAILY [facility] - Exam General: Alert, Oriented HEENT: Mucous Membr. Moist/[place] Neck: Supple Lungs: Decreased Breath Sounds, Crackles (RLL) Cardiovascular: Regular Rate, Regular Rhythm GI/Abdominal Exam: Normal Bowel Sounds, Soft, Non-Tender Extremities: Normal Inspection, Pedal Edema (trace) Skin: Warm, Dry Neurological: No New Focal Deficit - Problem List & Annotations (1) Acute bronchitis SNOMED Code(s): 98951903 Code(s): J20.9 - ACUTE BRONCHITIS, UNSPECIFIED Status: Acute Priority: High Current Visit: Yes Qualifiers: Bronchitis organism: unspecified organism Qualified Code(s): J20.9 - Acute bronchitis, unspecified (2) Pneumonia SNOMED Code(s): 792512310 Code(s): J18.9 - PNEUMONIA, UNSPECIFIED ORGANISM Status: Acute Priority: High Current Visit: Yes Qualifiers: Pneumonia type: due to unspecified organism Laterality: right Lung location: lower lobe of lung Qualified Code(s): J18.1 - Lobar pneumonia, unspecified organism - Problem List Review Problem List Initiated/Reviewed/Updated: Yes - My Orders Last 24 Hours: My Active Orders 07/16/18 09:15 Docusate Sodium [Colace] 100 mg PO DAILY 07/16/18 20:10 CULTURE SPUTUM + SMEAR [RM] Routine 07/18/18 05:11 C-REACTIVE PROTEIN [CHEM] AM CBC WITH AUTO DIFF [HEME] AM - Assessment Assessment:: RLL Pneumonia - Plan Plan:: Patient admits to feeling better today. Does still get short of breath but doesn't feel as tight as was when presented yesterday. Oxygen sats 97-98% on 2 liters. Lung sounds note crackles in the bases, no wheezing at this time. Diminished air exchange. Afebrile. Is ambulating short distances. WBC 15.3 this am. CRP 3.8. ProBNP increased. Blood pressure 180s/70s. Will continue with IV Levaquin and Solu Medrol. Wean off oxygen as able. Start Norvasc 5 mg daily at bedtime. Repeat labs in am. Reevaluate discharge potential at that time. 07-16-2018 Patient stable today. Still continues to feel short of breath when up. States cough/chest is loosening. No sputum production as of yet. Afebrile. Blood pressure is improved today. WBC is high today, likely from steroids. CRP is improved, 1.4. INR is high today, 3.22. Initial blood cultures show no growth. Will ambulate patient today. Continue same medication regimen. Hold Coumadin today. Possible discharge tomorrow if able to wean off oxygen. 07-17-2018 Patient is slowly improving. Weaned off oxygen yesterday but does drop to 87% yet with ambulation. Remains around 93-94% on room air at rest. Admits to getting wheezy at times. Continues to have cough, productive now. Sputum sample sent down yesterday. She is afebrile. WBC is 16.7, CRP has improved to 0.6 now tho. Blood pressure still a bit high at 161/69, started Norvasc yesterday. Will continue to ambulate. IV Levaquin and Solu Medrol, nebs. Possible discharge home if an if able to maintain sats above 90%.
[2018-07-17] MEDS ORDERED: Warfarin 2.5 MG Tab PO ONE (12:00)
[2018-07-17] MEDS: Digoxin 125 MCG Tab PO SCH (12:36)
[2018-07-17] MEDS: Levofloxacin/Dextrose 5%-Water 250 MG in Premix Bag 1 BAG IV SCH (15:54)
[2018-07-17] MEDS: amLODIPine 10 MG Tab PO SCH (19:35)
[2018-07-18] MEDS: Albuterol/Ipratropium 3.0-0.5 MG/3 ML Neb Soln NEB PRN (08:15)
[2018-07-18] MEDS: Docusate Sodium 100 MG Cap PO SCH (08:16)
[2018-07-18] MEDS: Atenolol 50 MG Tab PO SCH (08:16)
[2018-07-18] MEDS: Cholecalciferol (Vitamin D3) 1,000 Unit Tab PO SCH (08:16)
[2018-07-18] MEDS: Acetaminophen 325 MG Tab PO PRN (08:17)
[2018-07-18] MEDS: Potassium Gluconate (99 MG) 2 MEQ Tab PO SCH (08:17)
[2018-07-18] MEDS: Albuterol/Ipratropium 3.0-0.5 MG/3 ML Neb Soln NEB SCH (08:18)
[2018-07-18] MEDS: Torsemide 20 MG Tab PO SCH (08:23)
[2018-07-18] MEDS: VILANTEROL INH SCH (08:23)
[2018-07-18] MEDS: [UNRECOGNIZED DRUG - OTHER] INH SCH (08:23)
[2018-07-18] MEDS: methylPREDNISolone Sodium Succinate 125 MG/2 ML SDV IVPUSH SCH (09:58)
[2018-07-18] MEDS ORDERED: Levofloxacin/Dextrose 5%-Water 250 MG in Premix Bag 1 BAG IV ONE (11:30)
[2018-07-18] MEDS ORDERED: Warfarin 5 MG Tab PO SCH (12:00)
[2018-07-18] MEDS ORDERED: Warfarin 2.5 MG Tab PO ONE (12:30)
[2018-07-18] MEDS: Digoxin 125 MCG Tab PO SCH (12:33)
[2018-07-18 13:40] VITALS: BP 151/58
--- NOTE | 2018-07-18 21:54 | PCM.DCSUM1 ---
Discharge Summary - Hospital Course Free Text/Narrative:: Patient presented to ER with complaints of increased shortness of breath, congestion, productive cough. Oxygen sats 86% on room air on presentation. Patient has a history of asthma and bronchitis. On presentation, patient was noted to have wheezing throughout. Did respond well to nebulizer treatment. CT of the chest did show probable right lower pneumonia. Admitted for IV antibiotics, steroids, and nebs. Diagnosis: Stroke: No Modified Lanette Scale: No Symptoms at All Modified Lanette Scale Score: 0 - Discharge Data Discharge Date: 07/18/18 Discharge Disposition: Home, Self-Care 01 Condition: Good - Discharge Diagnosis/Problem(s) (1) Acute bronchitis SNOMED Code(s): 43291053 ICD Code: J20.9 - ACUTE BRONCHITIS, UNSPECIFIED Status: Acute Priority: High Qualifiers: Bronchitis organism: unspecified organism Qualified Code(s): J20.9 - Acute bronchitis, unspecified (2) Pneumonia SNOMED Code(s): 976572388 ICD Code: J18.9 - PNEUMONIA, UNSPECIFIED ORGANISM Status: Acute Priority : High Qualifiers: Pneumonia type: due to unspecified organism Laterality: right Lung location: lower lobe of lung Qualified Code(s): J18.1 - Lobar pneumonia, unspecified organism - Patient Summary/Data Complications: none Hospital Course: Patient has had slow improvement of her symptoms. She is now ambulating and maintaining sats around 90%. Does still have intermittent cough with wheezing at times but feel much less short of breath with activity. Labs have stabilized. WBC did increase, likely due to steroids. CRP has returned to normal. Initial BNP was elevated, is improving. INR was high so Coumadin was held for one day, decreased dose given each day since. Blood pressure high during hospitalization. Started on Norvasc with some response so was increased to 10 mg at bedtime. Will continue Levaquin at home. Decrease coumadin dose during this time. Nebs for the next week. Follow up with dr. Diaz next week. - Patient Instructions Diet: Usual Diet as Tolerated Activity: As Tolerated - Discharge Plan *PRESCRIPTION DRUG MONITORING PROGRAM REVIEWED*: Not Applicable *COPY OF PRESCRIPTION DRUG MONITORING REPORT IN PATIENT JOSETTE: Not Applicable Prescriptions/Med Rec: Albuterol/Ipratropium [DuoNeb 3.0-0.5 MG/3 ML] 3 ml NEB Q4H #1 box amLODIPine Besylate [Norvasc] 10 mg PO BEDTIME #30 tablet levoFLOXacin [Levaquin] 250 mg PO DAILY #7 tab Warfarin [Coumadin] 2.5 mg PO MOTH #30 tab Warfarin [Coumadin] 5 mg PO SUTUWEFRSA #30 tab Home Medications: Home Meds Atenolol 100 mg PO DAILY 06/02/17 [History] Cholecalciferol (Vitamin D3) [Vitamin D3] 2,000 unit PO DAILY 06/02/17 [History] Potassium Gluconate [Potassium] 198 mg PO QAM 06/02/17 [History] Torsemide 20 mg PO DAILY 06/02/17 [History] Albuterol [Ventolin HFA] 2 puff INH QID PRN 07/14/18 [History] Digoxin 0.1875 mg PO SUMOTUWETHSA 07/14/18 [History] Digoxin 250 mg PO FR 07/14/18 [History] Fluticasone/Vilanterol [Breo Ellipta 100-25 MCG Inhalation Kit] 1 puff INH DAILY 07/14/18 [History] Potassium 297 mg PO QPM 07/14/18 [History] Tumeric 1 tab PO DAILY 07/14/18 [History] Albuterol/Ipratropium [DuoNeb 3.0-0.5 MG/3 ML] 3 ml NEB Q4H #1 box 07/18/18 [Rx] Warfarin [Coumadin] 2.5 mg PO MOTH #30 tab 07/18/18 [Rx] Warfarin [Coumadin] 5 mg PO SUTUWEFRSA #30 tab 07/18/18 [Rx] amLODIPine Besylate [Norvasc] 10 mg PO BEDTIME 07/18/18 [History] amLODIPine Besylate [Norvasc] 10 mg PO BEDTIME #30 tablet 07/18/18 [Rx] levoFLOXacin [Levaquin] 250 mg PO DAILY #7 tab 07/18/18 [Rx] Patient Handouts: Asthma, Adult, Community-Acquired Pneumonia, Adult, Acute Bronchitis, Adult Forms: ED Department Discharge Referrals: Juan Diaz MD [Primary Care Provider] - (Follow up in one week for recheck ) - Discharge Summary/Plan Comment DC Time >30 min.: No - General Info Date of Service: 07/18/18 Admission Dx/Problem (Free Text: Acute Bronchitis Functional Status: Reports: Pain Controlled, Tolerating Diet, Ambulating - Review of Systems General: Reports: Weakness. Denies: Fever, Fatigue, Malaise HEENT: Reports: Rhinitis Pulmonary: Reports: Shortness of Breath, Cough, Sputum Cardiovascular: Reports: Edema. Denies: Chest Pain, Lightheadedness Gastrointestinal: Reports: No Symptoms Genitourinary: Reports: No Symptoms Musculoskeletal: Reports: Shoulder Pain Skin: Reports: No Symptoms Neurological: Reports: No Symptoms - Patient Data Vitals - Most Recent: Last Vital Signs Temp 97.2 F 07/18/18 12:00 Pulse 82 07/18/18 12:33 Resp 20 07/18/18 12:00 BP 151/58 H 07/18/18 12:00 Pulse Ox 94 L 07/18/18 12:00 Weight - Most Recent: 227 lb 6.4 oz Lab Results - Last 24 hrs: Laboratory Results - last 24 hr 07/18/18 07/18/18 07/18/18 Range/Units 06:50 06:50 08:56 WBC 15.3 H (5.0-10.0) 10^3/uL RBC 5.35 (4.00-5.50) 10^6/uL Hgb 15.8 (12.0-16.0) g/dL Hct 48.4 H (37.0-47.0) % MCV 90.5 (82.0-94.0) fL MCH 29.5 (27.0-32.0) pg MCHC 32.6 L (33.0-38.0) g/dL RDW Coeff of Joao 14.2 (11.0-15.0) % Plt Count 286 (150-400) 10^3/uL Neut % (Auto) 87.7 H (35-85) % Lymph % (Auto) 5.7 L (10-55) % [place] % (Auto) 6.5 (0-16) % Eos % (Auto) 0 (0-5) % Baso % (Auto) 0.1 (0-3) % Neut # (Auto) 13.45 H (1.80-7.00) 10^3/uL Lymph # (Auto) 0.88 L (1.00-4.80) 10^3/uL [place] # (Auto) 1.00 H (0.00-0.80) 10^3/uL Eos # (Auto) 0.00 (0.00-0.45) 10^3/uL Baso # (Auto) 0.01 10^3/uL PT 22.1 H (9.7-12.3) SEC INR 2.26 H (0.92-1.18) C-Reactive Protein 0.2 (0.2-0.8) mg/dL DEMIAN Results - Last 24 hrs: Microbiology 07/14/18 09:55 Aerobic Blood Culture - Preliminary Blood - Venous - Lab Draw NO GROWTH AFTER 4 DAYS Anaerobic Blood Culture - Preliminary NO GROWTH AFTER 4 DAYS 07/14/18 09:50 Aerobic Blood Culture - Preliminary Blood - Venous NO GROWTH AFTER 4 DAYS Anaerobic Blood Culture - Preliminary NO GROWTH AFTER 4 DAYS 07/16/18 20:10 Gram Stain - Final Sputum - Expectorated Sputum Culture - Preliminary Med Orders - Current: Current Medications Discontinued Medications Acetaminophen (Tylenol) 650 mg PO Q4H PRN PRN Reason: Pain (Mild 1-3)/fever Last Admin: 07/18/18 08:17 Dose: 650 mg Albuterol (Ventolin Hfa) 0 gm INH QID PRN PRN Reason: SHORTNESS OF BREATH Albuterol/Ipratropium (Duoneb 3.0-0.5 Mg/3 Ml) 3 ml NEB ONETIME ONE Stop: 07/14/18 07:58 Last Admin: 07/14/18 08:10 Dose: 3 ml Albuterol/Ipratropium (Duoneb 3.0-0.5 Mg/3 Ml) 3 ml NEB ONETIME ONE Stop: 07/14/18 08:40 Last Admin: 07/14/18 08:46 Dose: 3 ml Albuterol/Ipratropium (Duoneb 3.0-0.5 Mg/3 Ml) 3 ml NEB Q4H PRN PRN Reason: Shortness Of Breath/wheezing Last Admin: 07/18/18 08:15 Dose: 3 ml Albuterol/Ipratropium (Duoneb 3.0-0.5 Mg/3 Ml) 3 ml NEB TIDRT [facility] Last Admin: 07/18/18 08:18 Dose: 3 ml Amlodipine Besylate (Norvasc) 5 mg PO BEDTIME [facility] Last Admin: 07/17/18 19:35 Dose: 5 mg Atenolol (Tenormin) 100 mg PO DAILY [facility] Last Admin: 07/18/18 08:16 Dose: 100 mg Cholecalciferol (Vitamin D3) 2,000 units PO DAILY [facility] Last Admin: 07/18/18 08:16 Dose: 2,000 units Digoxin (Lanoxin) 187.5 mcg PO SuMoTuWeThSa@1200 [facility] Last Admin: 07/18/18 12:33 Dose: 187.5 mcg Digoxin (Lanoxin) 250 mcg PO Fr@1200 [facility] Docusate Sodium (Colace) 100 mg PO DAILY [facility] Last Admin: 07/18/18 08:16 Dose: 100 mg Levofloxacin/Dextrose 500 mg/ (Premix) 100 mls @ 100 mls/hr IV Q24H [facility] Last Admin: 07/14/18 11:45 Dose: 100 mls/hr Levofloxacin/Dextrose 500 mg/ (Premix) 100 mls @ 100 mls/hr IV NOW STA Stop: 07/14/18 16:58 Last Admin: 07/14/18 16:14 Dose: Not Given Levofloxacin/Dextrose 250 mg/ (Premix) 50 mls @ 50 mls/hr IV Q24H [facility] Last Admin: 07/17/18 15:54 Dose: 50 mls/hr Levofloxacin/Dextrose 250 mg/ (Premix) 50 mls @ 50 mls/hr IV ONETIME ONE Stop: 07/18/18 12:29 Last Admin: 07/18/18 11:30 Dose: 50 mls/hr Ibuprofen (Motrin) 600 mg PO Q6H PRN PRN Reason: Pain (mild 1-3) Last Admin: 07/17/18 23:08 Dose: 600 mg Methylprednisolone Sodium Succinate (Solu-Medrol) 125 mg IVPUSH NOW STA Stop: 07/14/18 08:40 Last Admin: 07/14/18 08:48 Dose: 125 mg Methylprednisolone Sodium Succinate (Solu-Medrol) 62.5 mg IVPUSH Q12H [facility] Last Admin: 07/18/18 09:58 Dose: 62.5 mg Mometasone Furoate/Formoterol Fumar (Dulera 100-5 Mcg) 0 puff IH BID [facility] Last Admin: 07/15/18 08:45 Dose: Not Given Morphine Sulfate (Morphine) 2 mg IVPUSH Q2H PRN PRN Reason: Pain (severe 7-10) Non-Formulary Medication (Tumeric) 1 tab PO DAILY [facility] Ptom Breo Ellipta Fluticasone/Vilanterol 100/25 1 Puff) 1 puff INH DAILY [facility] Last Admin: 07/18/18 08:23 Dose: 1 puff Ondansetron HCl (Zofran) 4 mg IV Q6H PRN PRN Reason: Nausea/Vomiting Potassium (Potassium Gluconate) 4 meq PO QAM [facility] Last Admin: 07/18/18 08:17 Dose: 4 meq Potassium (Potassium Gluconate) 6 meq PO QPM [facility] Last Admin: 07/17/18 19:34 Dose: 6 meq Torsemide (Demadex) 20 mg PO DAILY [facility] Last Admin: 07/18/18 08:23 Dose: 20 mg Warfarin Sodium (Coumadin) 5 mg PO SuMoTuWeFrSa@1200 [facility] Last Admin: 07/16/18 11:18 Dose: Not Given Warfarin Sodium (Coumadin) 2.5 mg PO ONETIME ONE Stop: 07/17/18 12:01 Last Admin: 07/17/18 12:36 Dose: 2.5 mg Warfarin Sodium (Coumadin) 2.5 mg PO ONETIME ONE Stop: 07/18/18 12:31 Last Admin: 07/18/18 12:33 Dose: 2.5 mg - Exam General: Reports: Alert, Oriented HEENT: Reports: Mucous Membr. Moist/[place] Neck: Reports: Supple Lungs: Reports: Normal Respiratory Effort, Wheezing Cardiovascular: Reports: Regular Rate, Regular Rhythm GI/Abdominal Exam: Normal Bowel Sounds, Soft, Non-Tender Extremities: Normal Inspection, Pedal Edema (trace) Skin: Reports: Warm, Dry Neurological: Reports: No New Focal Deficit
[2018-07-19] MEDS ORDERED: Digoxin 250 MCG Tab PO SCH (12:00)
== END 2018-07-18 12:50 | disposition home or self-care (01) | DRG 194 ==
LOC: CC.ED 07:45 → UNDOADMIN 08:52 → CC.MS 08:52
PROVIDERS: ADMIT Nurse Practitioner; ATTEND Family Medicine
DX: J18.1 Lobar pneumonia, unspecified organism (principal); J45.21 Mild intermittent asthma with (acute) exacerbation; R09.02 Hypoxemia; I48.91 Unspecified atrial fibrillation; I10 Essential (primary) hypertension; R32 Unspecified urinary incontinence; M19.90 Unspecified osteoarthritis, unspecified site; D72.829 Elevated white blood cell count, unspecified; T38.0X5A Adverse effect of glucocorticoids and synthetic analogues, initial encounter; R74.8 Abnormal levels of other serum enzymes; E66.9 Obesity, unspecified; Z68.35 Body mass index [BMI] 35.0-35.9, adult; Z90.710 Acquired absence of both cervix and uterus; Z91.040 Latex allergy status; Z91.048 Other nonmedicinal substance allergy status; R06.2 Wheezing; R05 Cough; R06.02 Shortness of breath; J20.9 Acute bronchitis, unspecified; Z79.899 Other long term (current) drug therapy; Z79.01 Long term (current) use of anticoagulants; Z96.659 Presence of unspecified artificial knee joint; Z87.891 Personal history of nicotine dependence
CPT/HCPCS: 36415; 71046; 80048; 80053; 80162; 83605; 83880; 84484; 85025; 85610; 86140; 87040; 87070; 87205; 87804; 93005; 94640; 96374; 99285; A9270-GY; J1956; J2930; J7620-GY

== ENCOUNTER → 2018-11-15 | Day surgery (SDC) | payer MEDICARE, OTHER ==
[~2018-11-15] MED LIST: Lactated Ringers 1,000 ML IV SCH; Propofol 200 MG/20 ML SDV IV ONE
--- NOTE | 2018-11-15 14:32 | OR ---
DATE OF OPERATION: 11/15/2018 PREOPERATIVE DIAGNOSIS: HEMATOCHEZIA. POSTOPERATIVE DIAGNOSIS: HEMATOCHEZIA. SURGEON: Juan Diaz MD PROCEDURE: DIAGNOSTIC COLONOSCOPY WITH FORCEPS POLYP REMOVAL X1. ANESTHESIA: MAC via [employer]. COMPLICATIONS: None. SPECIMEN: Small hyperplastic polyp, rectosigmoid junction. FINDINGS: 1. Full-length colonoscopy. 2. Marginal prep. 3. [id number] sigmoid diverticulosis. 4. Small likely hyperplastic polyp, rectosigmoid junction. 5. Prominent internal hemorrhoids. RECOMMENDATIONS: Routine followup only. INDICATIONS: The patient presented with 3 to 4 months of off-and-on hematochezia with bowel movements, bright red blood. She had not had a scope for over 10 years. She desired to proceed with colonoscopy. DESCRIPTION OF PROCEDURE: The patient was prepped and draped, placed in the left lateral decubitus position. A lubricated Olympus colonoscope was inserted and easily advanced to the cecum. We were able to directly visualize the ileocecal valve and appendiceal orifice. The bowel prep was marginal. There were lot of areas of thicker stool. Smaller lesions certainly could have been missed; but for the most part, I believe, we got an adequate look. Upon withdrawal, cecum, ascending, and transverse colon appeared completely benign. In the distal descending and up to the rectosigmoid junction, the patient had [id number] diverticular disease without inflammatory change or bleeding. I found no signs of any significant worrisome masses, lesions, polyps, or otherwise. No signs of colitis or vascular abnormalities. At the rectosigmoid junction, the patient had a small 3 mm hyperplastic-appearing polyp, removed in its entirety with the cold forceps. The rectal vault was benign. Retroflexion did show prominent internal hemorrhoids and vascular tissue. Air was then suctioned. Scope removed without complication. STEFAN/DESHAUN /[id number]
== END ==
LOC: CC.SDS 08:06
PROVIDERS: ATTEND Family Medicine
DX: K57.31 Diverticulosis of large intestine without perforation or abscess with bleeding (principal); K63.5 Polyp of colon; K64.8 Other hemorrhoids; I48.91 Unspecified atrial fibrillation; J44.9 Chronic obstructive pulmonary disease, unspecified; I10 Essential (primary) hypertension; E66.9 Obesity, unspecified; Z68.35 Body mass index [BMI] 35.0-35.9, adult; Z79.01 Long term (current) use of anticoagulants; Z79.51 Long term (current) use of inhaled steroids; Z79.899 Other long term (current) drug therapy; Z91.040 Latex allergy status; Z91.048 Other nonmedicinal substance allergy status
CPT/HCPCS: 00811; 36415; 85610; J2704; J7120

== ENCOUNTER 2019-10-08 07:08 | Inpatient (IN) | payer MEDICARE, OTHER ==
[2019-10-08] MEDS ORDERED: Ondansetron 4 MG/2 ML SDV ONE (07:28)
[2019-10-08] MEDS ORDERED: Ondansetron 4 MG/2 ML SDV IVPUSH ONE (07:30)
[2019-10-08 08:02] LABS: CHLORIDE,CL 104 mEq/L (98-106); SODIUM,NA 143 mEq/L (136-145)
[2019-10-08] MEDS ORDERED: Ondansetron 4 MG/2 ML SDV IVPUSH PRN (09:40)
--- NOTE | 2019-10-08 09:53 | EDM.PDOC ---
ED HPI GENERAL MEDICAL PROBLEM - General Chief Complaint: Gastrointestinal Problem Stated Complaint: vomiting, lethargy Time Seen by Provider: 10/08/19 07:35 Source of Information: Reports: Patient, Family History Limitations: Reports: No Limitations - History of Present Illness INITIAL COMMENTS - FREE TEXT/NARRATIVE: Sofia is an 89 yo female who is brought into the ED by EMS with complaints of dizziness, weakness and nausea. Patient states symptoms started this morning after getting up and using the restroom this morning. She states she felt "so dizzy I thought I was going to pass out." She admits she was able to call her daughter and when her daughter arrived she started vomiting and the dizziness was getting worse so decided to call for the ambulance. Her daughter admits her speech is somewhat slurred. Daughter denies any facial droop or unilateral weakness. Is concerned of stroke. - Related Data Allergies Allergy/AdvReac Type Severity Reaction Status Date / Time adhesive tape Allergy Rash Verified 10/08/19 08:46 latex Allergy Rash Verified 10/08/19 08:46 Home Meds: Home Meds Cholecalciferol (Vitamin D3) [Vitamin D3] 2,000 unit PO DAILY 06/02/17 [History] Potassium Gluconate [Potassium] 198 mg PO QAM 06/02/17 [History] Torsemide 20 mg PO DAILY 06/02/17 [History] atenoloL [Atenolol] 100 mg PO DAILY 06/02/17 [History] Albuterol [Ventolin HFA] 2 puff INH QID PRN 07/14/18 [History] Digoxin 187.5 mg PO SUMOTUWETHSA 07/14/18 [History] Digoxin 250 mg PO FR 07/14/18 [History] Fluticasone/Vilanterol [Breo Ellipta 100-25 MCG Inhalation Kit] 1 puff INH DAILY 07/14/18 [History] Warfarin [Coumadin] 5 mg PO SUTUWEFRSA #30 tab 07/18/18 [Rx] amLODIPine Besylate [Norvasc] 10 mg PO BEDTIME #30 tablet 07/18/18 [Rx] [place]-3S/DHA/Epa/Fish Oil/D3 [[place]-3 + D Softgel] 2 - 3 each PO DAILY 11/13/18 [History] Warfarin Sodium 7.5 mg PO MOTH 11/13/18 [History] Past Medical History HEENT History: Reports: None Cardiovascular History: Reports: Afib, Hypertension Respiratory History: Reports: None Gastrointestinal History: Reports: None Genitourinary History: Reports: Urinary Incontinence Other RADIOLOGY TECH History: IMPLANT FOR BLADDER Musculoskeletal History: Reports: Osteoarthritis Neurological History: Reports: None Endocrine/Metabolic History: Reports: Obesity/BMI 30+ Hematologic History: Reports: Anticoagulation Therapy - Past Surgical History Head Surgeries/Procedures: Reports: None HEENT Surgical History: Reports: Cataract Surgery, Tonsillectomy Cardiovascular Surgical History: Reports: None Respiratory Surgical History: Reports: None GI Surgical History: Reports: Cholecystectomy Female Surgical History: Reports: Breast Biopsy, Hysterectomy Musculoskeletal Surgical History: Reports: Knee Replacement Social & Family History - Family History Family Medical History: Noncontributory - Tobacco Use Smoking Status *Q: Former Smoker Used Tobacco, but Quit: Yes Month/Year Tobacco Last Used: 1979 - Caffeine Use Caffeine Use: Reports: Coffee - Living Situation & Occupation Living situation: Reports: Alone Occupation: Retired ED ROS GENERAL - Review of Systems Review Of Systems: See Below Constitutional: Reports: Weakness, Fatigue. Denies: Fever, Chills HEENT: Reports: No Symptoms Respiratory: Reports: No Symptoms Cardiovascular: Reports: Lightheadedness. Denies: Chest Pain, Dyspnea on Exertion, Syncope GI/Abdominal: Reports: No Symptoms : Reports: No Symptoms Neurological: Reports: Dizziness, Trouble Speaking, Difficulty Walking, Weakness. Denies: Headache, Paresthesia, Syncope Psychiatric: Reports: No Symptoms Hematologic/Lymphatic: Reports: No Symptoms - Physical Exam Exam: See Below Exam Limited By: No Limitations General Appearance: No Apparent Distress, Lethargic Eye Exam: Bilateral Eye: EOMI, Normal Inspection, PERRL Ears: Normal External Exam, Normal Canal, Hearing Grossly Normal, Normal TMs Nose: Normal Inspection, Normal Mucosa, No Blood Throat/Mouth: Normal Inspection, Normal Lips, Normal Teeth, Normal Gums, Normal Oropharynx, Normal Voice, No Airway Compromise Head Exam: Atraumatic, Normocephalic Neck: Normal Inspection, Supple Respiratory/Chest: No Respiratory Distress, Lungs Clear, Normal Breath Sounds Cardiovascular: No Murmur, Irregularly Irregular (normal rate) GI/Abdominal: Normal Bowel Sounds, Soft Neuro Exam (Abbreviated): Alert, Oriented, CN II-XII Intact, Normal Cognition, Other (NIHSS score of 3: Level of consciousness was sleepy but arouses, Clumsy in righ t upper extremity with finger to nose and Slurs words but able to understand). No: Confused, Disoriented, Slow to Respond, Unresponsive, Memory Loss Remote Events, Memory Loss Recent Events Extremities: Normal Inspection, Pedal Edema (trace) Psychiatric: Normal Affect, Normal Mood Skin Exam: Warm, Dry, Intact, Normal Color, No Rash EKG INTERPRETATION EKG Date: 10/08/19 Time: 07:37 Rhythm: A-Fib Rate (Beats/Min): 60 Comparison: NA - No Prior EKG Course - Vital Signs Last Recorded V/S: Last Vital Signs Temp 96.2 F L 10/08/19 07:30 Pulse 58 L 10/08/19 08:10 Resp 16 10/08/19 08:10 BP 150/60 H 10/08/19 08:10 Pulse Ox 93 L 10/08/19 08:44 - Orders/Labs/Meds Orders: Active Orders 24 hr Category Date Time Status Oxygen Therapy Adult [Oxygen Therapy, ED] [RC] Care 10/08/19 08:44 Active ASDIRECTED Chest 1V Frontal [CR] Stat Exams 10/08/19 08:10 Taken Chest 2V [CR] Stat Exams 10/08/19 07:28 Taken Head wo Cont [CT] Stat Exams 10/08/19 08:01 Taken CULTURE URINE [RM] Stat Lab 10/08/19 08:44 Received Medication Orders Ondansetron HCl (Zofran) 4 mg IVPUSH Q6H PRN PRN Reason: Nausea Labs: Laboratory Tests 10/08/19 10/08/19 10/08/19 Range/Units 07:28 07:28 07:40 WBC 12.7 H (5.0-10.0) 10^3/uL RBC 5.28 (4.00-5.50) 10^6/uL Hgb 15.8 (12.0-16.0) g/dL Hct 47.9 H (37.0-47.0) % MCV 90.7 (82.0-94.0) fL MCH 29.9 (27.0-32.0) pg MCHC 33.0 (33.0-38.0) g/dL RDW Coeff of Joao 13.9 (11.0-15.0) % Plt Count 254 (150-400) 10^3/uL Neut % (Auto) 84.0 (35-85) % Lymph % (Auto) 10.2 (10-55) % [place] % (Auto) 4.6 (0-16) % Eos % (Auto) 0.7 (0-5) % Baso % (Auto) 0.5 (0-3) % Neut # (Auto) 10.69 H (1.80-7.00) 10^3/uL Lymph # (Auto) 1.30 (1.00-4.80) 10^3/uL [place] # (Auto) 0.59 (0.00-0.80) 10^3/uL Eos # (Auto) 0.09 (0.00-0.45) 10^3/uL Baso # (Auto) 0.06 10^3/uL PT 14.2 H (9.7-12.3) SEC INR 1.41 H (0.92-1.18) Sodium 143 (136-145) mEq/L Potassium 3.2 L D (3.5-5.0) mEq/L Chloride 104 (98-106) mEq/L Carbon Dioxide 30 (21-32) mmol/L BUN 22 H (7-18) mg/dL Creatinine 1.0 (0.6-1.0) mg/dL Est Cr Clr Drug Dosing 39.23 mL/min Estimated GFR (MDRD) 52 L (>=60) mL/min Glucose 227 H D (75-99) mg/dL Calcium 9.2 (8.4-10.1) mg/dL Total Bilirubin 0.7 (0.0-1.0) mg/dL AST 24 (15-37) U/L ALT 36 (12-78) U/L Alkaline Phosphatase 98 (46-116) U/L Lactate Dehydrogenase 162 (100-190) U/L Creatine Kinase 54 (21-215) U/L Troponin I < 0.017 (0.00-0.06) ng/mL Total Protein 7.1 (6.4-8.2) g/dL Albumin 3.8 (3.4-5.0) g/dL Lipase 136 (73-393) U/L Urine Color (YELLOW) Urine Appearance (CLEAR) Urine pH (4.5-8.0) Ur Specific [place] (1.003-1.020) Urine Protein (NEGATIVE) mg/dL Urine Glucose (UA) (NEGATIVE) mg/dL Urine Ketones (NEGATIVE) mg/dL Urine Occult Blood (NEGATIVE) Urine Nitrite (NEGATIVE) Urine Bilirubin (NEGATIVE) Urine Urobilinogen (0.2-1.0) EU/dL Ur Leukocyte Esterase (NEGATIVE) Urine RBC (0-5) /HPF Urine WBC (0-5) /HPF Ur Squamous Epith Cells (NOT SEEN) /HPF Urine Bacteria (NOT SEEN) /HPF Urinalysis Comment 10/08/19 Range/Units 08:44 WBC (5.0-10.0) 10^3/uL RBC (4.00-5.50) 10^6/uL Hgb (12.0-16.0) g/dL Hct (37.0-47.0) % MCV (82.0-94.0) fL MCH (27.0-32.0) pg MCHC (33.0-38.0) g/dL RDW Coeff of Joao (11.0-15.0) % Plt Count (150-400) 10^3/uL Neut % (Auto) (35-85) % Lymph % (Auto) (10-55) % [place] % (Auto) (0-16) % Eos % (Auto) (0-5) % Baso % (Auto) (0-3) % Neut # (Auto) (1.80-7.00) 10^3/uL Lymph # (Auto) (1.00-4.80) 10^3/uL [place] # (Auto) (0.00-0.80) 10^3/uL Eos # (Auto) (0.00-0.45) 10^3/uL Baso # (Auto) 10^3/uL PT (9.7-12.3) SEC INR (0.92-1.18) Sodium (136-145) mEq/L Potassium (3.5-5.0) mEq/L Chloride (98-106) mEq/L Carbon Dioxide (21-32) mmol/L BUN (7-18) mg/dL Creatinine (0.6-1.0) mg/dL Est Cr Clr Drug Dosing mL/min Estimated GFR (MDRD) (>=60) mL/min Glucose (75-99) mg/dL Calcium (8.4-10.1) mg/dL Total Bilirubin (0.0-1.0) mg/dL AST (15-37) U/L ALT (12-78) U/L Alkaline Phosphatase (46-116) U/L Lactate Dehydrogenase (100-190) U/L Creatine Kinase (21-215) U/L Troponin I (0.00-0.06) ng/mL Total Protein (6.4-8.2) g/dL Albumin (3.4-5.0) g/dL Lipase (73-393) U/L Urine Color Yellow (YELLOW) Urine Appearance Slightly cloudy (CLEAR) Urine pH 5.5 (4.5-8.0) Ur Specific [place] >= 1.030 H (1.003-1.020) Urine Protein 100 H (NEGATIVE) mg/dL Urine Glucose (UA) Negative (NEGATIVE) mg/dL Urine Ketones Negative (NEGATIVE) mg/dL Urine Occult Blood Trace-intact H (NEGATIVE) Urine Nitrite Negative (NEGATIVE) Urine Bilirubin Negative (NEGATIVE) Urine Urobilinogen 0.2 (0.2-1.0) EU/dL Ur Leukocyte Esterase Large H (NEGATIVE) Urine RBC 0-5 (0-5) /HPF Urine WBC 50-75 H (0-5) /HPF Ur Squamous Epith Cells Few H (NOT SEEN) /HPF Urine Bacteria Few H (NOT SEEN) /HPF Urinalysis Comment Meds: Medications Generic Name Dose Route Start Last Admin Trade Name Freq PRN Reason Stop Dose Admin Ondansetron HCl 4 mg 10/08/19 09:40 Zofran IVPUSH Q6H PRN Nausea Discontinued Medications Generic Name Dose Route Start Last Admin Trade Name Freq PRN Reason Stop Dose Admin Ondansetron HCl Confirm 10/08/19 07:28 10/08/19 08:38 Zofran Administered 10/08/19 07:29 Not Given Dose 4 mg .ROUTE .STK-MED ONE Ondansetron HCl 4 mg 10/08/19 07:30 10/08/19 07:38 Zofran IVPUSH 10/08/19 07:31 4 mg Q6H ONE Administration - Radiology Interpretation Free Text/Narrative:: CT head is negative for any acute abnormalities. CT Results Date: 10/08/19 Departure - Departure Time of Disposition: 09:30 Disposition: Admitted As Inpatient 67 Clinical Impression: UTI, Urinary tract infectious disease, Hypokalemia, Weakness generalized - Discharge Information Sepsis Event Note - Evaluation Sepsis Screening Result: No Definite Risk - Focused Exam Vital Signs: Vital Signs Temp Pulse Resp BP Pulse Ox Pulse Ox 10/08/19 08:44 93 L 10/08/19 08:10 58 L 16 150/60 H 93 L 10/08/19 07:30 96.2 F L 58 L 18 158/64 H 88 L Date Exam was Performed: 10/08/19 Time Exam was Performed: 09:44 - Problem List & Annotations (1) Hypokalemia SNOMED Code(s): 94705981 Code(s): E87.6 - HYPOKALEMIA Status: Acute Current Visit: Yes (2) UTI, Urinary tract infectious disease SNOMED Code(s): 46167209 Code(s): N39.0 - URINARY TRACT INFECTION, SITE NOT SPECIFIED Status: Acute Current Visit: Yes (3) Weakness generalized SNOMED Code(s): 72928317 Code(s): R53.1 - WEAKNESS Status: Acute Current Visit: Yes - My Orders Last 24 Hours: My Active Orders 10/08/19 07:28 Chest 2V [CR] Stat 10/08/19 08:01 Head wo Cont [CT] Stat 10/08/19 08:10 Chest 1V Frontal [CR] Stat 10/08/19 08:44 Oxygen Therapy Adult [Oxygen Therapy, ED] [RC] ASDIRECTED CULTURE URINE [RM] Stat - Assessment/Plan Admission H&P: Please use this note as an admission H&P Last 24 Hours: My Active Orders 10/08/19 07:28 Chest 2V [CR] Stat 10/08/19 08:01 Head wo Cont [CT] Stat 10/08/19 08:10 Chest 1V Frontal [CR] Stat 10/08/19 08:44 Oxygen Therapy Adult [Oxygen Therapy, ED] [RC] ASDIRECTED CULTURE URINE [RM] Stat Plan: Direct admit to Dr. Diaz's services under acute care. Will start IV antibiotics. INR is subtherapeutic and will get daily INR's. Lovenox to be bridged until INR is therapeutic. Dr. Diaz is in agreement with admission. Discussed findings with Sofia and her daughter, which both verbalized understanding.
[2019-10-08] MEDS ORDERED: Sodium Chloride 0.9% 10 ML Syringe FLUSH PRN (10:09)
[2019-10-08] MEDS: NS + KCl 20mEq/L 1,000 ML IV SCH ×2 (10:47→20:22)
[2019-10-08] MEDS: cefTRIAXone 1 GM Vial IVPUSH SCH (10:47)
[2019-10-08] MEDS: Formoterol/Mometasone 100-5 MCG 8.8 GM Inhaler IH SCH ×2 (10:55→19:37)
[2019-10-08] MEDS: Torsemide 20 MG Tab PO SCH (10:55)
[2019-10-08] MEDS: Digoxin 125 MCG Tab PO SCH (10:55)
[2019-10-08] MEDS: Enoxaparin 100 MG/1 ML Syringe SUBCUT SCH ×2 (10:56→19:38)
[2019-10-08] MEDS: Atenolol 50 MG Tab PO SCH (10:56)
[2019-10-08] MEDS: Warfarin 5 MG Tab PO SCH (11:07)
[2019-10-08] MEDS: amLODIPine 10 MG Tab PO SCH (19:38)
[2019-10-09] MEDS: Torsemide 20 MG Tab PO SCH (07:32)
[2019-10-09] MEDS: Formoterol/Mometasone 100-5 MCG 8.8 GM Inhaler IH SCH ×2 (07:33→19:36)
[2019-10-09] MEDS: Enoxaparin 100 MG/1 ML Syringe SUBCUT SCH ×2 (08:30→19:36)
[2019-10-09] MEDS: Atenolol 50 MG Tab PO SCH (09:16)
[2019-10-09] MEDS: Digoxin 125 MCG Tab PO SCH (09:16)
[2019-10-09] MEDS: cefTRIAXone 1 GM Vial IVPUSH SCH (10:50)
[2019-10-09] MEDS: Hydrocortisone 1% Crm 30 GM Tube TOP PRN (11:24)
[2019-10-09] MEDS ORDERED: Warfarin 2.5 MG Tab PO SCH (12:00)
--- NOTE | 2019-10-09 12:52 | PN ---
DATE: 10/09/2019 Sofia is a pleasant 89-year-old with chronic Afib, CHF. She presented to [facility] yesterday apparently in the emergency room with acute onset of unsteadiness of vertigo. She denies any headache at the time. [facility] evaluated her. She felt she had a UTI and admitted her for such. When I talked to her this morning, she states that the vertigo was acute in onset, very unsteady gait, and when she was admitted, she had a subtherapeutic INR. Today, she feels much better. All symptoms have resolved. PHYSICAL EXAMINATION: GENERAL: When I examined her, she is pleasant and cooperative. She has O2 on at 2 L. NECK: Veins are nondistended. HEENT: Otherwise grossly benign. LUNGS: Lung sounds are clear other than right bases with diminished air movement. CARDIAC: Tones are irregular. ABDOMEN: Soft. NEUROLOGICAL: Rapid alternating movements, [id number] pointing are intact. Strength and sensation appear full and normal. ASSESSMENT: 1. ACUTE VERTIGO WITH UNSTEADY GAIT. 2. CHRONIC ATRIAL FIBRILLATION. 3. SUBTHERAPEUTIC INR. 4. POSSIBLE URINARY TRACT INFECTION. 5. BRADYCARDIA, ASYMPTOMATIC. 6. HYPOKALEMIA. P: We are waiting on urine culture. We will continue Rocephin. Her potassium was low on admit. It is now normal today. We will stop her IV fluids as she does have a history of heart failure and right-sided pleural effusion. We will put her on oral potassium replacement. I am going to get an MRI of her brain tomorrow. I am concerned about an embolic CVA given her atrial fibrillation and subtherapeutic INR. She remains on Lovenox until her INR is therapeutic. She is on a significant digoxin dose and has had some bradycardia down into the 40s at night, asymptomatic. I am going to get a digoxin level this morning. The patient apparently has been up in her room and ambulating, feeling markedly better. STEFAN/DESHAUN /[id number]
[2019-10-09] MEDS: Acetaminophen 325 MG Tab PO PRN (18:23)
[2019-10-09] MEDS: amLODIPine 10 MG Tab PO SCH (19:36)
[2019-10-10] MEDS ORDERED: Digoxin 250 MCG Tab PO SCH (08:00)
[2019-10-10] MEDS: Enoxaparin 100 MG/1 ML Syringe SUBCUT SCH (08:46)
[2019-10-10] MEDS: Atenolol 50 MG Tab PO SCH (08:50)
[2019-10-10] MEDS: Formoterol/Mometasone 100-5 MCG 8.8 GM Inhaler IH SCH ×2 (08:50→19:35)
[2019-10-10] MEDS: Torsemide 20 MG Tab PO SCH (08:51)
[2019-10-10] MEDS: Potassium Chloride 10 MEQ Tab.ER PO SCH (08:51)
[2019-10-10] MEDS: cefTRIAXone 1 GM Vial IVPUSH SCH (10:50)
[2019-10-10] MEDS: Warfarin 5 MG Tab PO SCH (11:49)
--- NOTE | 2019-10-10 14:36 | PN ---
DATE: 10/10/2019 S: Sofia is doing very well. She feels much better. She has been up in her room. She is ambulating without a lot of dizziness. She has had no more vertigo. Vital signs have been fine. She does at times have bradycardia. Her dig level was therapeutic at 0.8 and nontoxic. They have been holding her atenolol at times. Unfortunately, she remains on oxygen about 2 to 3 L. She does have a history of pleural effusion on the right side and it certainly looks like that is back and we are having a hard time getting her off oxygen and this has been therapeutically and diagnostically tapped in the past and CHF is the etiology. She could not have her MRI today because she has a bladder stimulator present. O: GENERAL: When I examine her, she is pleasant, cooperative, and in no distress. She is wearing O2 at 2 L. NECK: Her neck veins are nondistended. CHEST: Her lung sounds are diminished significantly in the right base, otherwise clear. CARDIAC: Tones remain irregular. ABDOMEN: Soft. EXTREMITIES: She has no significant peripheral edema. ASSESSMENT: 1. ACUTE VERTIGO WITH UNSTEADINESS, RESOLVED, WORRISOME FOR CEREBROVASCULAR ACCIDENT. 2. CHRONIC ATRIAL FIBRILLATION WITH PRIOR SUBTHERAPEUTIC INR. 3. URINARY TRACT INFECTION, PENDING CULTURE. 4. CONGESTIVE HEART FAILURE WITH RIGHT-SIDED PLEURAL EFFUSION. P: We will continue her Rocephin for now. Her potassium is now normal and we will continue with oral replacement. We are going to increase her Demadex from 20 mg to 40. I will have a repeat chest x-ray in the morning. We should be able to control this and slowly resolve it with diuresis. We will see how she tolerates that. She has been having bradycardia. No hypotension. Her dig level is therapeutic. I will back off her atenolol from 100 mg once a day to 25 b.i.d. No other changes at this time. STEFAN/DESHAUN /[id number]
[2019-10-10] MEDS: Atenolol 25 MG Tab PO SCH (19:34)
[2019-10-10] MEDS: amLODIPine 10 MG Tab PO SCH (19:35)
[2019-10-10] MEDS: Hydrocortisone 1% Crm 30 GM Tube TOP PRN (19:36)
[2019-10-10] MEDS: Acetaminophen 325 MG Tab PO PRN (19:50)
[2019-10-11] MEDS: Formoterol/Mometasone 100-5 MCG 8.8 GM Inhaler IH SCH (07:41)
[2019-10-11 07:42] LABS: CHLORIDE,CL 109 mEq/L (98-106); SODIUM,NA 146 mEq/L (136-145)
[2019-10-11] MEDS: Potassium Chloride 10 MEQ Tab.ER PO SCH (07:42)
[2019-10-11] MEDS: Digoxin 125 MCG Tab PO SCH (07:42)
[2019-10-11] MEDS: Atenolol 25 MG Tab PO SCH (07:44)
[2019-10-11 07:45] VITALS: BP 135/57; PULSE 65
[2019-10-11] MEDS: Acetaminophen 325 MG Tab PO PRN (07:45)
[2019-10-11] MEDS ORDERED: Torsemide 20 MG Tab PO SCH (08:00)
--- NOTE | 2019-10-11 10:53 | PCM.DCSUM1 ---
Discharge Summary - Hospital Course HPI Initial Comments: This patient is being admitted to [facility] today. This patient was admitted for UTI and currently having Rocephin for this. She also may have had a cva with her dizziness/vertigo. However, she is unable to have a MRI. The patient also has known CHF. She has undergone recent medication chancges per Dr. Diaz note yesterday. She had a CXR today, will let radiology read this image. The patient reports that she does not have any shortness of breath while laying or sitting up in bed. She reports she has some shortness of breath with activity or ambulation. Today, she is on 3L NC oxygen saturation at 93%. Labs are unremarkable. Will swing patient today for continued treatment of possible CVA, UTI, congestive heart failure with right sided pleural effusion. - Discharge Data Discharge Date: 10/11/19 Discharge Disposition: DC/Tfer W/I Hosp To [place] [id number] Condition: Good - Referral to Home Health Primary Care Physician: Juan Diaz MD - Patient Summary/Data Consults: Consultations 10/09/19 15:05 Consult to Physical Therapy [PT Evaluation and Treatment] [CONS] Routine - Patient Instructions Diet: Usual Diet as Tolerated Activity: As Tolerated - Discharge Plan *PRESCRIPTION DRUG MONITORING PROGRAM REVIEWED*: Not Applicable *COPY OF PRESCRIPTION DRUG MONITORING REPORT IN PATIENT JOSETTE: Not Applicable Home Medications: Home Meds Cholecalciferol (Vitamin D3) [Vitamin D3] 2,000 unit PO DAILY 06/02/17 [History] Potassium Gluconate [Potassium] 198 mg PO QAM 06/02/17 [History] Torsemide 20 mg PO DAILY 06/02/17 [History] atenoloL [Atenolol] 100 mg PO DAILY 06/02/17 [History] Albuterol [Ventolin HFA] 2 puff INH QID PRN 07/14/18 [History] Digoxin 187.5 mg PO SUMOTUWETHSA 07/14/18 [History] Digoxin 250 mg PO FR 07/14/18 [History] Fluticasone/Vilanterol [Breo Ellipta 100-25 MCG Inhalation Kit] 1 puff INH DAILY 07/14/18 [History] Warfarin [Coumadin] 5 mg PO SUTUWEFRSA #30 tab 07/18/18 [Rx] amLODIPine Besylate [Norvasc] 10 mg PO BEDTIME #30 tablet 07/18/18 [Rx] [place]-3S/DHA/Epa/Fish Oil/D3 [[place]-3 + D Softgel] 2 - 3 each PO DAILY 11/13/18 [History] Warfarin Sodium 7.5 mg PO MOTH 11/13/18 [History] Oxygen Therapy Mode: Room Air Oxygen Flow Rate (L/min): 3 Maintain SpO2% greater than: 92 Patient Handouts: Urinary Tract Infection, Adult Forms: ED Department Discharge Referrals: Juan Diaz MD [Primary Care Provider] - - Discharge Summary/Plan Comment DC Time >30 min.: No - General Info Date of Service: 10/11/19 Functional Status: Reports: Pain Controlled, Tolerating Diet - Review of Systems General: Reports: Weakness (general), Fatigue. Denies: Fever HEENT: Reports: No Symptoms Pulmonary: Reports: Shortness of Breath (not sitting up in bed, but mildly to moderately with activity.) Cardiovascular: Reports: No Symptoms. Denies: Edema Gastrointestinal: Reports: No Symptoms. Denies: Abdominal Pain, Diarrhea, Nausea, Vomiting Genitourinary: Reports: No Symptoms Musculoskeletal: Reports: Joint Pain (chronic right knee pain, unchanged. ) Skin: Reports: No Symptoms Neurological: Denies: Dizziness (denies today), Numbness, Seizure, Syncope, Tingling, Change in Speech, Gait Disturbance Psychiatric: Reports: No Symptoms - Patient Data Vitals - Most Recent: Last Vital Signs Temp 99.7 F 10/11/19 08:00 Pulse 65 10/11/19 08:00 Resp 16 10/11/19 08:00 BP 135/57 L 10/11/19 08:00 Pulse Ox 93 L 10/11/19 08:00 Weight - Most Recent: 212 lb Lab Results - Last 24 hrs: Laboratory Results - last 24 hr 10/11/19 10/11/19 10/11/19 Range/Units 07:00 07:00 07:00 WBC 10.4 H (5.0-10.0) 10^3/uL RBC 4.69 (4.00-5.50) 10^6/uL Hgb 13.9 (12.0-16.0) g/dL Hct 43.7 (37.0-47.0) % MCV 93.2 (82.0-94.0) fL MCH 29.6 (27.0-32.0) pg MCHC 31.8 L (33.0-38.0) g/dL RDW Coeff of Joao 14.4 (11.0-15.0) % Plt Count 213 (150-400) 10^3/uL Neut % (Auto) 78.1 (35-85) % Lymph % (Auto) 12.2 (10-55) % [place] % (Auto) 8.0 (0-16) % Eos % (Auto) 1.3 (0-5) % Baso % (Auto) 0.4 (0-3) % Neut # (Auto) 8.12 H (1.80-7.00) 10^3/uL Lymph # (Auto) 1.27 (1.00-4.80) 10^3/uL [place] # (Auto) 0.83 H (0.00-0.80) 10^3/uL Eos # (Auto) 0.14 (0.00-0.45) 10^3/uL Baso # (Auto) 0.04 10^3/uL PT 28.5 H (9.7-12.3) SEC INR 2.85 H (0.92-1.18) Sodium 146 H (136-145) mEq/L Potassium 3.7 (3.5-5.0) mEq/L Chloride 109 H (98-106) mEq/L Carbon Dioxide 32 (21-32) mmol/L BUN 16 (7-18) mg/dL Creatinine 0.8 (0.6-1.0) mg/dL Est Cr Clr Drug Dosing 49.03 mL/min Estimated GFR (MDRD) > 60 (>=60) mL/min Glucose 115 H (75-99) mg/dL Calcium 8.6 (8.4-10.1) mg/dL DEMIAN Results - Last 24 hrs: Microbiology 10/08/19 08:44 Urine Culture - Final Urine, Clean Catch Med Orders - Current: Current Medications Acetaminophen (Tylenol) 650 mg PO Q4H PRN PRN Reason: Pain (Mild 1-3)/fever Last Admin: 10/11/19 07:45 Dose: 650 mg Amlodipine Besylate (Norvasc) 10 mg PO BEDTIME LORRI Last Admin: 10/10/19 19:35 Dose: 10 mg Atenolol (Tenormin) 25 mg PO BID [facility] Last Admin: 10/11/19 07:44 Dose: 25 mg Ceftriaxone Sodium (Rocephin) 1 gm IVPUSH Q24H [facility] Last Admin: 10/10/19 10:50 Dose: 1 gm Digoxin (Lanoxin) 187.5 mcg PO SuMoTuWeThSa@0800 [facility] Last Admin: 10/11/19 07:42 Dose: 187.5 mcg Digoxin (Lanoxin) 250 mcg PO Fr@0800 [facility] Last Admin: 10/10/19 08:51 Dose: 250 mcg Hydrocortisone (Hydrocortisone 1% Crm) 30 gm TOP ASDIRECTED PRN PRN Reason: rash Last Admin: 10/10/19 19:36 Dose: 1 dose Mometasone Furoate/Formoterol Fumar (Dulera 100-5 Mcg) 2 puff IH BID [facility] Last Admin: 10/11/19 07:41 Dose: 2 puff Ondansetron HCl (Zofran) 4 mg IVPUSH Q6H PRN PRN Reason: Nausea Potassium Chloride (Klor-Con 10) 10 meq PO DAILY [facility] Last Admin: 10/11/19 07:42 Dose: 10 meq Sodium Chloride (Saline Flush) 10 ml FLUSH ASDIRECTED PRN PRN Reason: Keep Vein Open Torsemide (Demadex) 40 mg PO DAILY [facility] Last Admin: 10/11/19 07:41 Dose: 40 mg Warfarin Sodium (Coumadin) 5 mg PO SuTuWeFrSa@1200 [facility] Last Admin: 10/10/19 11:49 Dose: 5 mg Warfarin Sodium (Coumadin) 7.5 mg PO MoTh@1200 [facility] Last Admin: 10/09/19 11:24 Dose: 7.5 mg Discontinued Medications Atenolol (Tenormin) 100 mg PO DAILY [facility] Last Admin: 10/10/19 08:50 Dose: 100 mg Enoxaparin Sodium (Lovenox) 100 mg SUBCUT BID [facility] Last Admin: 10/10/19 08:46 Dose: Not Given Potassium Chloride/Sodium Chloride (Normal Saline With 20 Meq Kcl) 1,000 mls @ 100 mls/hr IV ASDIRECTED [facility] Last Admin: 10/08/19 20:22 Dose: 100 mls/hr Ondansetron HCl (Zofran) Confirm Administered Dose 4 mg .ROUTE .[facility]-MED ONE Stop: 10/08/19 07:29 Last Admin: 10/08/19 08:38 Dose: Not Given Ondansetron HCl (Zofran) 4 mg IVPUSH Q6H ONE Stop: 10/08/19 07:31 Last Admin: 10/08/19 07:38 Dose: 4 mg Torsemide (Demadex) 20 mg PO DAILY [facility] Last Admin: 10/10/19 08:51 Dose: 20 mg - Exam Quality Assessment: Reports: Supplemental Oxygen (3L [place] @ 93%) General: Reports: Alert, Oriented, Cooperative, No Acute Distress HEENT: Reports: Pupils Equal, Pupils Reactive, Mucous Membr. Moist/[place] Neck: Reports: Supple, Trachea Midline, No JVD Lungs: Reports: Clear to Auscultation (except right lung base), Decreased Breath Sounds (RLL) Cardiovascular: Reports: Bradycardia (58 on exam), Murmurs GI/Abdominal Exam: Soft, Non-Tender, No Distention Back Exam: Reports: Normal Inspection, Full Range of Motion Extremities: Normal Inspection, Normal Range of Motion, Non-Tender, No Pedal Edema, Normal Capillary Refill Skin: Reports: Warm, Dry, Intact Neurological: Reports: No New Focal Deficit, Normal Speech, Normal Tone, Strength Equal Bilateral, Sensation Intact, Cranial Nerves Intact Psy/Mental Status: Reports: Alert, Normal Affect, Normal Mood
[2019-10-11] MEDS: cefTRIAXone 1 GM Vial IVPUSH SCH (11:09)
== END 2019-10-11 11:11 | disposition swing bed (61) | DRG 689 ==
LOC: CC.ED 07:08 → CC.MS 09:10 → UNDOADMIN 09:10 → CC.MS 09:31
PROVIDERS: ADMIT Physician Assistant Medical; ATTEND Family Medicine
DX: N39.0 Urinary tract infection, site not specified (principal); I63.9 Cerebral infarction, unspecified; R53.1 Weakness; I48.91 Unspecified atrial fibrillation; I10 Essential (primary) hypertension; R32 Unspecified urinary incontinence; I48.20 Chronic atrial fibrillation, unspecified; R26.81 Unsteadiness on feet; Z98.49 Cataract extraction status, unspecified eye; Z90.49 Acquired absence of other specified parts of digestive tract; I11.0 Hypertensive heart disease with heart failure; I50.9 Heart failure, unspecified; R42 Dizziness and giddiness; R00.1 Bradycardia, unspecified; Z91.048 Other nonmedicinal substance allergy status; E87.6 Hypokalemia; R29.703 NIHSS score 3; E66.9 Obesity, unspecified; M19.90 Unspecified osteoarthritis, unspecified site; Z96.659 Presence of unspecified artificial knee joint; Z91.09 Other allergy status, other than to drugs and biological substances; Z91.040 Latex allergy status; Z79.899 Other long term (current) drug therapy; Z79.01 Long term (current) use of anticoagulants; Z87.891 Personal history of nicotine dependence; Z90.710 Acquired absence of both cervix and uterus; Z68.32 Body mass index [BMI] 32.0-32.9, adult
CPT/HCPCS: 36415; 70450; 71045; 71046; 80048; 80053; 80162; 81001; 82550; 83615; 83690; 84484; 85025; 85610; 87086; 93005; 93010; 94640; 96374; 97110-GP; 97161-GP; 99285-25; A9270-GY; J0696; J1650; J2405; J3480

== ENCOUNTER 2019-10-11 11:06 | Inpatient (IN) | payer MEDICARE, OTHER ==
[2019-10-11] MEDS ORDERED: Ondansetron 4 MG/2 ML SDV IV PRN (14:41)
[2019-10-11] MEDS ORDERED: Acetaminophen 325 MG Tab PO PRN (14:41)
[2019-10-11] MEDS ORDERED: Docusate Sodium 100 MG Cap PO PRN (14:41)
[2019-10-11] MEDS ORDERED: Albuterol 8 GM Inhaler INH PRN (14:41)
[2019-10-11] MEDS: Warfarin 5 MG Tab PO SCH (15:51)
[2019-10-11] MEDS: Formoterol/Mometasone 100-5 MCG 8.8 GM Inhaler IH SCH (19:38)
[2019-10-11] MEDS: amLODIPine 10 MG Tab PO SCH (19:46)
[2019-10-11] MEDS: Atenolol 25 MG Tab PO SCH (19:47)
[2019-10-12 07:35] LABS: CHLORIDE,CL 107 mEq/L (98-106); SODIUM,NA 145 mEq/L (136-145)
[2019-10-12] MEDS: Atenolol 25 MG Tab PO SCH ×2 (07:56→19:47)
[2019-10-12] MEDS: Digoxin 125 MCG Tab PO SCH (07:57)
[2019-10-12] MEDS: Potassium Gluconate (99 MG) 2 MEQ Tab PO SCH (07:59)
[2019-10-12] MEDS: Torsemide 20 MG Tab PO SCH (07:59)
[2019-10-12] MEDS: Formoterol/Mometasone 100-5 MCG 8.8 GM Inhaler IH SCH ×2 (07:59→19:43)
[2019-10-12] MEDS: Cholecalciferol (Vitamin D3) 25 MCG Tab PO SCH (07:59)
[2019-10-12] MEDS: OMEGA FISH OIL PO SCH (08:00)
[2019-10-12] MEDS: cefTRIAXone 1 GM Vial IVPUSH SCH (11:08)
[2019-10-12] MEDS: Warfarin 5 MG Tab PO SCH (12:02)
[2019-10-12] MEDS ORDERED: Atenolol 50 MG Tab ONE (19:44)
[2019-10-12] MEDS: amLODIPine 10 MG Tab PO SCH (19:46)
--- NOTE | 2019-10-12 22:23 | PCM.PN ---
- General Info Date of Service: 10/12/19 Functional Status: Reports: Pain Controlled, Tolerating Diet, Ambulating - Review of Systems General: Reports: No Symptoms HEENT: Reports: No Symptoms Pulmonary: Reports: No Symptoms. Denies: Shortness of Breath Cardiovascular: Reports: No Symptoms. Denies: Chest Pain, Palpitations, Dyspnea on Exertion, Orthopnea, PND, Edema, Lightheadedness Gastrointestinal: Reports: No Symptoms Genitourinary: Reports: No Symptoms Musculoskeletal: Reports: No Symptoms Skin: Reports: No Symptoms Neurological: Reports: No Symptoms Psychiatric: Reports: No Symptoms - Patient Data Vitals - Most Recent: Last Vital Signs Temp 97.3 F 10/12/19 20:00 Pulse 58 L 10/12/19 20:00 Resp 20 10/12/19 20:00 BP 150/45 H 10/12/19 20:00 Pulse Ox 97 10/12/19 20:00 Weight - Most Recent: 222 lb 11.2 oz Lab Results Last 24 Hours: Laboratory Results - last 24 hr 10/12/19 10/12/19 10/12/19 Range/Units 07:05 07:05 07:05 WBC 10.2 H (5.0-10.0) 10^3/uL RBC 4.85 (4.00-5.50) 10^6/uL Hgb 14.4 (12.0-16.0) g/dL Hct 44.6 (37.0-47.0) % MCV 92.0 (82.0-94.0) fL MCH 29.7 (27.0-32.0) pg MCHC 32.3 L (33.0-38.0) g/dL RDW Coeff of Joao 14.1 (11.0-15.0) % Plt Count 236 (150-400) 10^3/uL Neut % (Auto) 76.9 (35-85) % Lymph % (Auto) 12.5 (10-55) % [place] % (Auto) 7.1 (0-16) % Eos % (Auto) 2.9 (0-5) % Baso % (Auto) 0.6 (0-3) % Neut # (Auto) 7.83 H (1.80-7.00) 10^3/uL Lymph # (Auto) 1.27 (1.00-4.80) 10^3/uL [place] # (Auto) 0.72 (0.00-0.80) 10^3/uL Eos # (Auto) 0.30 (0.00-0.45) 10^3/uL Baso # (Auto) 0.06 10^3/uL PT 25.3 H (9.7-12.3) SEC INR 2.52 H (0.92-1.18) Sodium 145 (136-145) mEq/L Potassium 3.8 (3.5-5.0) mEq/L Chloride 107 H (98-106) mEq/L Carbon Dioxide 31 (21-32) mmol/L BUN 15 (7-18) mg/dL Creatinine 0.8 (0.6-1.0) mg/dL Est Cr Clr Drug Dosing 49.03 mL/min Estimated GFR (MDRD) > 60 (>=60) mL/min Glucose 111 H (75-99) mg/dL Calcium 8.6 (8.4-10.1) mg/dL Med Orders - Current: Current Medications Acetaminophen (Tylenol) 650 mg PO Q4H PRN PRN Reason: Pain (Mild 1-3)/fever Last Admin: 10/11/19 19:47 Dose: 650 mg Albuterol (Ventolin Hfa) 0 gm INH QID PRN PRN Reason: Shortness of Breath Amlodipine Besylate (Norvasc) 10 mg PO BEDTIME [facility] Last Admin: 10/12/19 19:46 Dose: 10 mg Atenolol (Tenormin) 25 mg PO BID [facility] Last Admin: 10/12/19 19:47 Dose: Not Given Ceftriaxone Sodium (Rocephin) 1 gm IVPUSH Q24H [facility] Stop: 10/14/19 10:05 Last Admin: 10/12/19 11:08 Dose: 1 gm Cholecalciferol (Vitamin D3) 50 mcg PO DAILY [facility] Last Admin: 10/12/19 07:59 Dose: 50 mcg Digoxin (Lanoxin) 187.5 mcg PO SuMoTuWeThSa@0800 [facility] Last Admin: 10/12/19 07:57 Dose: 187.5 mcg Digoxin (Lanoxin) 250 mcg PO Fr@0800 [facility] Docusate Sodium (Colace) 100 mg PO BID PRN PRN Reason: Constipation Mometasone Furoate/Formoterol Fumar (Dulera 100-5 Mcg) 2 puff IH BID [facility] Last Admin: 10/12/19 19:43 Dose: 2 puff [place]-3 Fish Oil 1, (000 Mg Own Med) 1 each PO DAILY [facility] Last Admin: 10/12/19 08:00 Dose: 1 each Ondansetron HCl (Zofran) 4 mg IV Q6H PRN PRN Reason: Nausea/Vomiting Potassium (Potassium Gluconate) 4 meq PO QAM [facility] Last Admin: 10/12/19 07:59 Dose: 4 meq Torsemide (Demadex) 40 mg PO DAILY [facility] Last Admin: 10/12/19 07:59 Dose: 40 mg Warfarin Sodium (Coumadin) 5 mg PO SuTuWeFrSa@1200 [facility] Last Admin: 10/12/19 12:02 Dose: 5 mg Warfarin Sodium (Coumadin) 7.5 mg PO MoTh@1200 [facility] Discontinued Medications Atenolol (Tenormin) Confirm Administered Dose 50 mg .ROUTE .STK-MED ONE Stop: 10/12/19 19:45 Last Admin: 10/12/19 19:47 Dose: 25 mg - Exam General: Alert, Oriented, Cooperative, No Acute Distress Neck: Supple, Trachea Midline, No JVD Lungs: Clear to Auscultation, Normal Respiratory Effort, Decreased Breath Sounds (RLL) Cardiovascular: Regular Rhythm, Bradycardia, Murmurs GI/Abdominal Exam: Soft, Non-Tender Back Exam: Normal Inspection, Full Range of Motion Extremities: Normal Inspection, Normal Range of Motion, Non-Tender, No Pedal Edema, Normal Capillary Refill Peripheral Pulses: 2+: Radial (L), Radial (R), Posterior Tibial (L), Posterior Tibial (R), Dorsalis Pedis (L), Dorsalis Pedis (R) Skin: Warm, Dry, Intact Psy/Mental Status: Alert, Normal Affect, Normal Mood Sepsis Event Note - Evaluation Sepsis Screening Result: No Definite Risk - Focused Exam Vital Signs: Vital Signs Temp Pulse Pulse Resp BP BP Pulse Ox 10/12/19 20:00 97.3 F 58 L 20 150/45 H 97 10/12/19 19:47 58 L 150/45 H 10/12/19 19:46 150/45 H Date Exam was Performed: 10/12/19 Time Exam was Performed: 22:21 - Problem List Review Problem List Initiated/Reviewed/Updated: Yes - My Orders Last 24 Hours: My Active Orders 10/12/19 08:00 Cholecalciferol (Vitamin D3) [Vitamin D3] 50 mcg PO DAILY Digoxin [Lanoxin] 187.5 mcg PO SuMoTuWeThSa@0800 [place]-3S/DHA/Epa/Fish Oil/D3 [[place]-3 + D Softgel] 1 each PO DAILY Potassium Gluconate 4 meq PO QAM Torsemide [Demadex] 40 mg PO DAILY 10/12/19 10:00 cefTRIAXone [Rocephin] 1 gm IVPUSH Q24H 10/13/19 05:00 BASIC METABOLIC PANEL,BMP [CHEM] DAILY CBC WITH AUTO DIFF [HEME] DAILY INR,PT,PROTHROMBIN TIME [COAG] DAILY 10/13/19 12:00 Warfarin [Coumadin] 7.5 mg PO MoTh@1200 10/17/19 08:00 Digoxin [Lanoxin] 250 mcg PO Fr@0800 - Plan Plan:: 10/12/2019 2200 I was told by NURYS Horowitz that the patient is having some short pauses cardiac. The patient has no symptoms. She has known bradycardia. She reports she is feeling good and feels like she could even be discharged tonight. She got up and walked to the bathroom without issue with walker. Patient reports she did not have any dizziness or difficulty. She is alert and oriented. Denies chest pain or shortness of breath. I will order an EKG for the morning. PCP will see patient tomorrow.
[2019-10-13 07:32] LABS: CHLORIDE,CL 106 mEq/L (98-106); SODIUM,NA 143 mEq/L (136-145)
[2019-10-13] MEDS: Formoterol/Mometasone 100-5 MCG 8.8 GM Inhaler IH SCH (08:11)
[2019-10-13] MEDS: Digoxin 125 MCG Tab PO SCH (08:12)
[2019-10-13] MEDS: Potassium Gluconate (99 MG) 2 MEQ Tab PO SCH (08:13)
[2019-10-13] MEDS: Torsemide 20 MG Tab PO SCH (08:13)
[2019-10-13] MEDS: Atenolol 25 MG Tab PO SCH (08:13)
[2019-10-13] MEDS: OMEGA FISH OIL PO SCH (08:14)
[2019-10-13] MEDS: Cholecalciferol (Vitamin D3) 25 MCG Tab PO SCH (08:16)
[2019-10-13] MEDS: cefTRIAXone 1 GM Vial IVPUSH SCH (09:30)
[2019-10-13] MEDS ORDERED: Warfarin 2.5 MG Tab PO SCH (12:00)
--- NOTE | 2019-10-13 13:24 | DISCH ---
ADMISSION DIAGNOSES: 1. Vertigo with weakness, likely cerebrovascular accident. 2. Right-sided pleural effusion secondary to congestive heart failure. 3. Hypoxia secondary to above. 4. Weakness. 5. Chronic atrial fibrillation. DISCHARGE DIAGNOSIS: 1. VERTIGO WITH WEAKNESS, LIKELY CEREBROVASCULAR ACCIDENT. 2. RIGHT-SIDED PLEURAL EFFUSION SECONDARY TO CONGESTIVE HEART FAILURE. 3. HYPOXIA SECONDARY TO ABOVE. 4. WEAKNESS. 5. CHRONIC ATRIAL FIBRILLATION. HISTORY: The patient presented to our emergency room with weakness and confusion and some ataxia with vertigo. There was a question whether or not she had a UTI. Urine culture ultimately came back negative. She did have a subtherapeutic INR and was put in the hospital for IV antibiotics, put on Lovenox and started on appropriate dose of Coumadin. Her acute care stay went well. She recovered very quickly within 24 hours. She was almost urologically stable. She did have some hypokalemia which resolved in her acute care stay, some bradycardia. We cut back her atenolol dose and at the time we switched her to swing bed, she was still pretty weak requiring oxygen because she had accumulation of pleural effusion on the right side. This is a chronic issue for her related to CHF. We increased her Demadex and put her in swing bed for further monitoring. SWING BED COURSE: The patient did well while here. She has had stable blood counts. Her INR is up to the therapeutic level at 2.74. Her renal function is excellent, digoxin level was nontoxic. She remains bradycardic at times in the 50s and 60s, but she is, for the most part, asymptomatic. We will leave her on the lower dose of atenolol. It sounds like she is moving much more air in her right lung. She is now weaned off O2 and is saturating at 94% to 96% on room air. We will continue on that dose. We have home health evaluate and monitor her for routine and daily INRs, blood pressure monitoring, fluid checks, weights, etc. I will see her back in the clinic, hopefully marga Roscoe for a and availability for lab in 2 weeks. COMPLICATIONS: Complications during her stay were none. CONSULTATIONS: PT. DISPOSITION: Discharged home. STEFAN/DESHAUN /[id number]
[2019-10-13] MEDS ORDERED: EPINEPHrine 1 MG/1 ML Amp ONE (13:35)
[2019-10-17] MEDS ORDERED: Digoxin 125 MCG Tab PO SCH (08:00)
== END 2019-10-13 13:30 | disposition home or self-care (01) | DRG 65 ==
LOC: CC.MS 11:06 → UNDOADMIN 11:12
PROVIDERS: ADMIT Nurse Practitioner; ATTEND Family Medicine
DX: I63.9 Cerebral infarction, unspecified (principal); I48.20 Chronic atrial fibrillation, unspecified; I50.9 Heart failure, unspecified; Z79.01 Long term (current) use of anticoagulants; R09.02 Hypoxemia; R00.1 Bradycardia, unspecified; R53.1 Weakness; R79.1 Abnormal coagulation profile; R42 Dizziness and giddiness
CPT/HCPCS: 36415; 80048; 85025; 85610; 93005; 94640; A9270-GY; J0696

== ENCOUNTER 2020-03-19 16:26 | Emergency (ER) | payer MEDICARE, OTHER ==
--- NOTE | 2020-03-19 16:59 | EDM.PDOC ---
ED HPI GENERAL MEDICAL PROBLEM - General Chief Complaint: Trauma Stated Complaint: head laceration Time Seen by Provider: 03/19/20 16:43 Source of Information: Reports: Patient, Family History Limitations: Reports: No Limitations - History of Present Illness INITIAL COMMENTS - FREE TEXT/NARRATIVE: Patient to the emergency department with family where she fell and hit her head on a in table, the patient has a 1.5 cm laceration to the right parietal head area. There is no loss of consciousness. The patient is on Coumadin for atrial fibrillation. The patient denies any neck pain. She denies any other symptoms. However, approximately 12 days ago she did test positive for COVID 19. 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 COUNSELOR: Reports: Other (see below) (none) - Related Data Allergies Allergy/AdvReac Type Severity Reaction Status Date / Time adhesive tape Allergy Rash Verified 03/19/20 16:41 cat dander Allergy Wheezing Verified 03/19/20 16:41 latex Allergy Rash Verified 03/19/20 16:41 Home Meds: Home Meds Cholecalciferol (Vitamin D3) [Vitamin D3] 2,000 unit PO DAILY 06/02/17 [History] Albuterol [Ventolin HFA] 2 puff INH QID PRN 07/14/18 [History] Digoxin 187.5 mg PO SUMOTUWETHSA 07/14/18 [History] Digoxin 250 mg PO FR 07/14/18 [History] Fluticasone/Vilanterol [Breo Ellipta 100-25 MCG Inhalation Kit] 1 puff INH DAILY 07/14/18 [History] amLODIPine Besylate [Norvasc] 10 mg PO BEDTIME #30 tablet 07/18/18 [Rx] [place]-3S/DHA/Epa/Fish Oil/D3 [[place]-3 + D Softgel] 2 - 3 each PO DAILY 11/13/18 [History] Potassium Chloride 10 meq PO QAM #30 capsule.er 10/13/19 [Rx] Torsemide [Demadex] 40 mg PO DAILY #30 tablet 10/13/19 [Rx] atenoloL [Tenormin] 25 mg PO BID #60 tablet 10/13/19 [Rx] Triamcinolone Acetonide [Triamcinolone Acetonide 0.1% Crm] 1 each TOP BID PRN 03/04/20 [History] Turmeric 1 each .XX ASDIRECTED 03/04/20 [History] Warfarin [Coumadin] 5 mg PO DAILY 03/19/20 [History] Past Medical History HEENT History: Reports: None Cardiovascular History: Reports: Afib, Hypertension Respiratory History: Reports: None Gastrointestinal History: Reports: None Genitourinary History: Reports: Urinary Incontinence Other [employer]SEM[employer]ER History: IMPLANT FOR BLADDER Musculoskeletal History: Reports: Osteoarthritis Neurological History: Reports: None Endocrine/Metabolic History: Reports: Obesity/BMI 30+ Hematologic History: Reports: Anticoagulation Therapy - Past Surgical History Head Surgeries/Procedures: Reports: None HEENT Surgical History: Reports: Cataract Surgery, Tonsillectomy Cardiovascular Surgical History: Reports: None Respiratory Surgical History: Reports: None GI Surgical History: Reports: Cholecystectomy Female Surgical History: Reports: Breast Biopsy, Hysterectomy Musculoskeletal Surgical History: Reports: Knee Replacement Social & Family History - Family History Family Medical History: Noncontributory - Caffeine Use Caffeine Use: Reports: Coffee - Living Situation & Occupation Living situation: Reports: Alone Occupation: Retired ED ROS GENERAL - Review of Systems Review Of Systems: See Below Constitutional: Reports: No Symptoms HEENT: Reports: No Symptoms Respiratory: Reports: No Symptoms Cardiovascular: Reports: No Symptoms GI/Abdominal: Reports: No Symptoms. Denies: Nausea, Vomiting Musculoskeletal: Denies: Neck Pain, Back Pain Skin: Reports: Wound (1.5 cm laceration to the head as described above) Neurological: Denies: Confusion, Headache Psychiatric: Reports: No Symptoms ED EXAM, HEAD INJURY - Physical Exam Exam: See Below Exam Limited By: No Limitations General Appearance: Alert, WD/WN, No Apparent Distress Head: Normocephalic, Scalp Lacerations Nexus Criteria: No: Posterior, Midline Cervical Tenderness, Evidence of Intoxication, Altered Level of Consciousness, Focal Neurological Deficit, Painful Distraction Injuries Eyes: Bilateral Eye: EOMI, PERRL Ears: Normal External Exam, Normal Canal, Hearing Grossly Normal, Normal TMs Nose: Normal Inspection, Normal Mucousa Throat/Mouth: Normal Inspection, Normal Voice, No Airway Compromise Neck: Non-Tender, Full Range of Motion, Normal Alignment, Normal Inspection Respiratory: No Respiratory Distress, Lungs Clear, Normal Breath Sounds, Chest Non-Tender Cardiovascular: Irregularly Irregular GI/Abdominal Exam: Soft, Non-Tender Extremities: Normal Inspection, Normal Range of Motion, Non-Tender, Normal Capillary Refill Neurologic: cover maker II-XII nml As Tested, No Motor/Sensory Deficits, Alert, Normal Mood/Affect, Oriented x 3 Skin: Normal Color, Warm/Dry, Other (1.5 cm laceration to the right parietal head bleeding is controlled) - [place] Coma Score Best Eye Response ([place]): (4) Open Spontaneously Best Verbal Response ([place]): (5) Oriented Best Motor Response ([place]): (6) Obeys Commands ED LACERATION/WOUND & SUSAN PROC - Laceration/Wound Repair Right Lateral Head Lac/wound length in cm: 1.5 Appearance: Linear Distal NVT: Neuro & Vascular Intact Anesthetic Type: Local Local Anesthesia - Lidocaine (Xylocaine): 1% Plain Local Anesthetic Volume: 5cc Skin Prep: Saline Exploration/Debridement/Repair: Wound Explored, In a Bloodless Field, Explored to Base, No Foreign Material Found Closed with: Sutures Suture Size: 5-0 # of Sutures: 4 Suture Type: Nylon Sterile Dressing Applied: Nurse Tetanus Status Addressed: Yes (is UTD) Complications: No Course - Vital Signs Text/Narrative:: 1643 This is a trauma code 1650 Patient was evaluated in the emergency department the patient does have a laceration to her right parietal area secondary to hitting it on and in table. There is no loss of consciousness. The patient denies any headache or dizziness. The patient has no unusual neck or back pain. The patient is am bulatory. The patient has no abdominal pain no nausea no vomiting she has no other complaints. The patient's GCS is 4-5-6. No hip or pelvis problems/pain, the patient's blood has been sample and taken to the lab and she is currently in CT for evaluation of her head. 1720 CT of the head was completed and I do not see any obvious bony abnormalities nor any intracranial bleeding. However, the radiology reading is still pending. 1731 the patient's laceration was cleaned with a safe cleaning liquid and then the area was infiltrated with 5 mL of 1% lidocaine without epinephrine. Following this the wound was closed with 4 interrupted five-point 0 nylon sutures. The patient did tolerate the procedure well. 1746 the radiologist is read the CT and is negative, see the report for complete details. The patient will be discharged home she will have laceration instructions as well as head injury instructions. The patient is to continue all of her current medications. The patient CBC and general chemistries were normal the INR was actually a little bit low at 1.6. I did advise the daughter to continue the Coumadin and have the PT/INR rechecked later this week. I also advised them to apply thin coat of bacitracin 3 times a day to the wound and that the sutures can more than likely come out in 7 to 10 days. Also advised to return to the emergency department sooner if worse or any problems. The patient's discharge Gl[place]ow coma score is 4-5-6. Last Recorded V/S: Last Vital Signs Temp 37.0 C 03/19/20 17:45 Pulse 78 03/19/20 17:45 Resp 23 H 03/19/20 17:45 BP 153/70 H 03/19/20 17:45 Pulse Ox 94 L 03/19/20 17:45 - Orders/Labs/Meds Orders: Active Orders 24 hr Category Date Time Status Head wo Cont [CT] Stat Exams 03/19/20 16:46 Taken Isolation [COMM] Routine Oth 03/19/20 16:26 Active Labs: Laboratory Tests 03/19/20 03/19/20 03/19/20 Range/Units 16:40 16:40 16:40 WBC 6.7 (5.0-10.0) 10^3/uL RBC 5.64 H (4.00-5.50) 10^6/uL Hgb 16.2 H (12.0-16.0) g/dL Hct 48.6 H (37.0-47.0) % MCV 86.2 (82.0-94.0) fL MCH 28.7 (27.0-32.0) pg MCHC 33.3 (33.0-38.0) g/dL RDW Coeff of Joao 14.3 (11.0-15.0) % Plt Count 200 (150-400) 10^3/uL Neut % (Auto) 86.0 H (35-85) % Lymph % (Auto) 6.8 L (10-55) % [place] % (Auto) 6.7 (0-16) % Eos % (Auto) 0.1 (0-5) % Baso % (Auto) 0.4 (0-3) % Neut # (Auto) 5.78 (1.80-7.00) 10^3/uL Lymph # (Auto) 0.46 L (1.00-4.80) 10^3/uL [place] # (Auto) 0.45 (0.00-0.80) 10^3/uL Eos # (Auto) 0.01 (0.00-0.45) 10^3/uL Baso # (Auto) 0.03 10^3/uL PT 16.1 H (9.7-12.3) SEC INR 1.60 H (0.92-1.18) Sodium 138 (136-145) mEq/L Potassium 4.7 (3.5-5.0) mEq/L Chloride 103 (98-106) mEq/L Carbon Dioxide 26 (21-32) mmol/L BUN 18 (7-18) mg/dL Creatinine 0.9 (0.6-1.0) mg/dL Est Cr Clr Drug Dosing TNP Estimated GFR (MDRD) 59 L (>=60) mL/min Glucose 106 H (75-99) mg/dL Calcium 8.9 (8.4-10.1) mg/dL Total Bilirubin 0.9 (0.0-1.0) mg/dL AST 47 H (15-37) U/L ALT 52 (12-78) U/L Alkaline Phosphatase 73 (46-116) U/L Total Protein 6.6 (6.4-8.2) g/dL Albumin 3.1 L (3.4-5.0) g/dL Meds: Medications Discontinued Medications Generic Name Dose Route Start Last Admin Trade Name Freq PRN Reason Stop Dose Admin Lidocaine HCl 20 ml 03/19/20 17:01 03/19/20 17:12 Xylocaine 1% INJECT 03/19/20 17:02 20 ml ONETIME ONE Administration Departure - Departure Time of Disposition: 17:43 Disposition: Home, Self-Care 01 Clinical Impression: Fall, Closed head injury, Laceration of scalp - Discharge Information *PRESCRIPTION DRUG MONITORING PROGRAM REVIEWED*: Not Applicable *COPY OF PRESCRIPTION DRUG MONITORING REPORT IN PATIENT JOSETTE: Not Applicable Instructions: Head Injury, Adult, Laceration Care, Adult Forms: ED Department Discharge Additional Instructions: Keep the wound clean and dry Apply thin coating Neosporin 3 times a day Follow the head injury instructions Sutures can come out in 7 to 10 days Although up with your family doctor to remove the sutures Return to the emergency department sooner if worse or any problems Sepsis Event Note (ED) - Focused Exam Vital Signs: Vital Signs Temp Pulse Resp BP Pulse Ox 03/19/20 17:45 37.0 C 78 23 H 153/70 H 94 L 03/19/20 17:30 37.1 C 70 24 H 163/58 H 92 L 03/19/20 17:15 37.0 C 78 24 H 150/62 H 93 L 03/19/20 17:00 37.2 C 76 17 143/54 H 92 L 03/19/20 16:45 37.2 C 75 20 150/67 H 93 L 03/19/20 16:30 37.5 C 75 20 157/69 H 93 L 03/19/20 16:26 37.3 C 71 16 168/73 H 93 L - Problem List & Annotations (1) Closed head injury SNOMED Code(s): 798479930544 Code(s): S09.90XA - UNSPECIFIED INJURY OF HEAD, INITIAL ENCOUNTER Status: Acute Priority: Medium Qualifiers: Encounter type: initial encounter Qualified Code(s): S09.90XA - Unspecified injury of head, initial encounter (2) Fall SNOMED Code(s): 1646640, 091111066 Code(s): W19.XXXA - UNSPECIFIED FALL, INITIAL ENCOUNTER Status: Acute Priority: Medium Qualifiers: Encounter type: initial encounter Qualified Code(s): W19.XXXA - Unspecified fall, initial encounter (3) Laceration of scalp SNOMED Code(s): 870590344 Code(s): S01.01XA - LACERATION WITHOUT FOREIGN BODY OF SCALP, INITIAL ENCOUNTER Status: Acute Priority: Medium Qualifiers: Encounter type: initial encounter Qualified Code(s): S01.01XA - Laceration without foreign body of scalp, initial encounter - Problem List Review Problem List Initiated/Reviewed/Updated: Yes - My Orders Last 24 Hours: My Active Orders 03/19/20 16:26 Isolation [COMM] Routine 03/19/20 16:46 Head wo Cont [CT] Stat - Assessment/Plan Last 24 Hours: My Active Orders 03/19/20 16:26 Isolation [COMM] Routine 03/19/20 16:46 Head wo Cont [CT] Stat Plan: As above
[2020-03-19] MEDS ORDERED: Lidocaine 1% 20 ML MDV INJECT ONE (17:01)
[2020-03-19 17:04] LABS: CHLORIDE,CL 103 mEq/L (98-106); SODIUM,NA 138 mEq/L (136-145)
== END 2020-03-19 18:05 | disposition home or self-care (01) ==
LOC: CC.ED 16:26
DX: S01.01XA Laceration without foreign body of scalp, initial encounter (principal); I10 Essential (primary) hypertension; I48.91 Unspecified atrial fibrillation; E66.9 Obesity, unspecified; Z90.710 Acquired absence of both cervix and uterus; Z90.49 Acquired absence of other specified parts of digestive tract; Z68.29 Body mass index [BMI] 29.0-29.9, adult; Z91.09 Other allergy status, other than to drugs and biological substances; Z91.040 Latex allergy status; Z79.01 Long term (current) use of anticoagulants; Z79.899 Other long term (current) drug therapy; W01.198A Fall on same level from slipping, tripping and stumbling with subsequent striking against other object, initial encounter
CPT/HCPCS: 12001; 70450; 80053; 85025; 85610; 99284; J2001; 12011; 99283

== ENCOUNTER 2020-12-28 19:27 | Emergency (ER) | payer MEDICARE, OTHER ==
[2020-12-28 19:35] VITALS: BP 190/73; PULSE 71
[2020-12-28] MEDS ORDERED: Bacitracin/Neomycin/Polymyxin B Oint 0.9 GM U/D Packet ONE (19:56)
[2020-12-28] MEDS ORDERED: Bacitracin/Neomycin/Polymyxin B Oint 0.9 GM U/D Packet TOP ONE (20:18)
[2020-12-28] MEDS ORDERED: Oxymetazoline 0.05% Nasal Spray 30 ML Bottle NAS ONE (20:18)
--- NOTE | 2020-12-28 21:00 | EDM.PDOC ---
ED HPI GENERAL MEDICAL PROBLEM - General Chief Complaint: General Stated Complaint: Epistaxis Time Seen by Provider: 12/28/20 19:41 Source of Information: Reports: Patient History Limitations: Reports: No Limitations - History of Present Illness INITIAL COMMENTS - FREE TEXT/NARRATIVE: Sofia is an 89 yo female who presents to the ED via EMS for a nose bleed. She states it started around 1500hrs this afternoon and thought a few times she was able to get it stopped. She admits around supper time it had stopped and she ate. States it started up again and has been unable to get it to stopped. She is on Coumadin for atrial fibrillation and last INR was done on the 23 of December and was 4.13. She states they decreased her Coumadin from 5mg three times a week and 7.5mg four times a week to 5mg 4 times a week and 7.5mg three times a week. 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: Dressing(s) - Related Data Allergies Allergy/AdvReac Type Severity Reaction Status Date / Time adhesive tape Allergy Rash Verified 12/28/20 20:11 cat dander Allergy Wheezing Verified 12/28/20 20:11 latex Allergy Rash Verified 12/28/20 20:11 Home Meds: Home Meds Cholecalciferol (Vitamin D3) [Vitamin D3] 2,000 unit PO DAILY 06/02/17 [History] Albuterol [Ventolin HFA] 2 puff INH QID PRN 07/14/18 [History] Digoxin 187.5 mg PO SUMOTUWETHSA 07/14/18 [History] Digoxin 250 mg PO FR 07/14/18 [History] Fluticasone/Vilanterol [Breo Ellipta 100-25 MCG Inhalation Kit] 1 puff INH DAILY 07/14/18 [History] amLODIPine Besylate [Norvasc] 10 mg PO BEDTIME #30 tablet 07/18/18 [Rx] [place]-3S/DHA/Epa/Fish Oil/D3 [[place]-3 + D Softgel] 2 - 3 each PO DAILY 11/13/18 [History] Potassium Chloride 10 meq PO QAM #30 capsule.er 10/13/19 [Rx] Torsemide [Demadex] 40 mg PO DAILY #30 tablet 10/13/19 [Rx] atenoloL [Tenormin] 25 mg PO BID #60 tablet 10/13/19 [Rx] Triamcinolone Acetonide [Triamcinolone Acetonide 0.1% Crm] 1 each TOP BID PRN 03/04/20 [History] Turmeric 1 each .XX ASDIRECTED 03/04/20 [History] Warfarin [Coumadin] 5 mg PO DAILY 03/19/20 [History] Past Medical History HEENT History: Reports: None Cardiovascular History: Reports: Afib, Hypertension Respiratory History: Reports: None Gastrointestinal History: Reports: None Genitourinary History: Reports: Urinary Incontinence Other [employer] History: IMPLANT FOR BLADDER Musculoskeletal History: Reports: Osteoarthritis Neurological History: Reports: None Endocrine/Metabolic History: Reports: Obesity/BMI 30+ Hematologic History: Reports: Anticoagulation Therapy - Past Surgical History Head Surgeries/Procedures: Reports: None HEENT Surgical History: Reports: Cataract Surgery, Tonsillectomy Cardiovascular Surgical History: Reports: None Respiratory Surgical History: Reports: None GI Surgical History: Reports: Cholecystectomy Other GI Surgeries/Procedures: IMPLANT FOR BOWEL CONTROL. Female Surgical History: Reports: Breast Biopsy, Hysterectomy Musculoskeletal Surgical History: Reports: Knee Replacement Social & Family History - Family History Family Medical History: No Pertinent Family History - Tobacco Use Tobacco Use Status *Q: Never Tobacco User - Caffeine Use Caffeine Use: Reports: None - Recreational Drug Use Recreational Drug Use: No - Living Situation & Occupation Living situation: Reports: Alone Occupation: Retired ED ROS GENERAL - Review of Systems Review Of Systems: See Below Constitutional: Reports: No Symptoms HEENT: Reports: Nosebleed Respiratory: Reports: No Symptoms Cardiovascular: Reports: No Symptoms Skin: Reports: No Symptoms Neurological: Reports: No Symptoms Psychiatric: Reports: No Symptoms Hematologic/Lymphatic: Reports: Easy Bleeding ED EXAM, GENERAL - Physical Exam Exam: See Below Exam Limited By: No Limitations General Appearance: Alert, No Apparent Distress Nose: Other (active epistaxis to the left nare. Multiple clots noted) Throat/Mouth: Normal Inspection, Normal Lips, No Airway Compromise Head: Atraumatic, Normocephalic Course - Vital Signs Last Recorded V/S: Last Vital Signs Temp 98.5 F 12/28/20 19:27 Pulse 71 12/28/20 19:27 Resp 18 12/28/20 19:27 BP 190/73 H 12/28/20 19:27 Pulse Ox 93 L 12/28/20 19:27 - Orders/Labs/Meds Labs: Laboratory Tests 12/28/20 12/28/20 Range/Units 19:44 20:12 Hgb 14.1 (12.0-16.0) g/dL Hct 43.8 (37.0-47.0) % PT 45.8 H (9.7-12.3) SEC INR 4.64 H* (0.92-1.18) Meds: Medications Discontinued Medications Generic Name Dose Route Start Last Admin Trade Name Freq PRN Reason Stop Dose Admin Neomycin/Polymyxin/Bacitracin Confirm 12/28/20 19:56 12/28/20 20:20 Bacitracin/Neomycin/Polymyxin B Oint 0.9 Gm U/D Packet Administered 12/28/20 19:57 1 each Dose Administration 1 each .ROUTE .STK-MED ONE Neomycin/Polymyxin/Bacitracin 1 each 12/28/20 20:18 Bacitracin/Neomycin/Polymyxin B Oint 0.9 Gm U/D Packet TOP 12/28/20 20:19 ONETIME ONE Oxymetazoline HCl 1 ml 12/28/20 20:18 12/28/20 20:24 Oxymetazoline 0.05% Nasal [place] 30 Ml Bottle RENEE 12/28/20 20:19 1 spray ONETIME ONE Administration Departure - Departure Time of Disposition: 22:30 Disposition: Home, Self-Care 01 Clinical Impression: Left-sided epistaxis - Discharge Information Instructions: Nosebleed, [id number] Referrals: Juan Diaz MD [Primary Care Provider] - Forms: ED Department Discharge Additional Instructions: 1) Hold Coumadin tomorrow. Do not restart Coumadin until follow up with Griselda Rolon on at 11:30 am in [place]. 2) Nasal rapid rhino was placed to stop the bleeding. Do not pull out. Will be removed on by Griselda. 3) Recheck blood pressure on as well. Continue taking blood pressure medication as directed. 4) If increased discomfort or any recurrent bleeding advise returning. Sepsis Event Note (ED) - Evaluation Sepsis Screening Result: No Definite Risk - Problem List & Annotations (1) Left-sided epistaxis SNOMED Code(s): 629724786 Code(s): R04.0 - EPISTAXIS Status: Acute - Assessment/Plan Plan: Initially we had patient clear nasal passages. Initial attempt of packing didn't clot and proceeded with rapid rhino. Using a 5.5cm rapid rhino, we initially soaked it in water for 30 seconds. Then proceed with inserting tamponade into the left nostril parallel to the septal floor. It was advance until the blue indicator was just inside of the nare. Using a 20 cc syringe, we proceeded with slowly inflating with air. Cuff was inflated with roughly 12ml's of air. Patient tolerated without any difficulty. Blood pressure was moderately elevated and patient did take evening dose of atenolol in the ED. Patient was monitored closely and blood pressure did gradually improve. We continued to monitor patient until her daughter (care transport nurse) who lives in adjoining home was able to come and get her. No complications or recurrent bleeding. Patient will be discharged home at this time. INR today is 4.64 and will have patient hold Coumadin tomorrow and until follow up appointment for rapid rhino removal and recheck INR with Griselda Rolon in [place] at 11:30 am.
== END 2020-12-28 22:41 | disposition home or self-care (01) ==
LOC: CC.ED 19:27
DX: R04.0 Epistaxis (principal); I48.91 Unspecified atrial fibrillation; I10 Essential (primary) hypertension; E66.9 Obesity, unspecified; Z91.048 Other nonmedicinal substance allergy status; Z91.040 Latex allergy status; Z68.32 Body mass index [BMI] 32.0-32.9, adult
CPT/HCPCS: 30901; 30903; 36415; 85014; 85018; 85610; 99282; 99284-25